=== PATIENT | male | born 1940 | race Caucasian/White ===

== ENCOUNTER 2022-01-22 00:39 | Observation (INO) | payer MEDICARE, SELFPAY ==
[2022-01-22] VITALS (9 sets, daily range): BP systolic 123–145; BP diastolic 62–76; PULSE 40–70; RESP 15–18; TEMP 36.4–36.7; O2SAT 93–97; BMI 30.4
[2022-01-22 06:35] LABS: Basophils % 0.7 % (0.1-2.0); Eosinophils # 0.2 K/mm3 (0.0-0.4); Hematocrit 31.1 % (42.0-52.0); Hemoglobin 10.2 g/dL (14.1-18.0); Lymphocytes # 0.8 K/mm3 (0.7-4.5); Mean Corpuscular HGB Conc 32.7 g/dL (31.8-35.4); Mean Corpuscular Hemoglobin 32.3 pg (27.0-31.2); Mean Corpuscular Volume 98.5 fl (80-94); Mean Platelet Volume 9.3 fl (7.4-10.4); Monocytes # 0.3 K/mm3 (0.1-1.0); Monocytes % 8.8 % (1.7-9.3); Neutrophils # 1.9 K/mm3 (1.8-7.8); Neutrophils % 59.4 % (37.0-80.0); Platelet Count 114 K/mm3 (142-424); Red Blood Count 3.16 M/mm3 (4.60-6.20); Red Cell Distribution Width 15.4 % (11.5-17.5); White Blood Count 3.2 K/mm3 (4.8-10.8)
--- NOTE | 2022-01-22 06:41 | PC.NURSE ---
Pt has rested well since admission. No c/o pain, or soa. Pt on 3L NC. AFIB on telemetry, bradycardic as low as 38bpm at times while asleep. Good urine output via f/c. VSS. No acute changes or distress noted, will continue to monitor.
[2022-01-22 06:43] LABS: Anion Gap 7.6 mEq/L (5-15); Blood Urea Nitrogen 13 mg/dl (9-20); Calcium 8.2 mg/dl (8.4-10.2); Carbon Dioxide 25 mmol/L (22.0-30.0); Chloride 107 mmol/L (98-107); Creatinine Clearance Estimated 76 mL/min (50-200); Estimated Glomerular Filt Rate 108 ml/min (>60); GFR (African American) 130 ML/MIN (>60); Glucose 90 mg/dl (74-100); Magnesium 1.8 mg/dl (1.6-2.3); Potassium 3.6 mmoL/L (3.5-5.1); Sodium 136 mmol/L (136-145)
[2022-01-22 07:05] LABS: POC Glucose,Bedside 88 (70-110)
[2022-01-22 07:05] LABS: NT Pro Brain Natriuretic Pep. 7080 pg/mL (0-450)
[2022-01-22 07:08] LABS: Troponin I < 0.01 ng/ml (0.00-0.034)
--- NOTE | 2022-01-22 07:30 | CA_ITS ---
APPROVED REPORT EXAM: Comprehensive 2D, Doppler, and color-flow Echocardiogram Machine Wood Sander: Amna Galeas RVT Ht: 5 ft 10 in Wt: 211lbs BSA: 2.14 BP: 123/67 mmHg Indications: NSTEMI,A-FIB,BRADYCARDIA 2D Dimensions LVOT 2.09 cm (M/F) 1.5-2.5 LA Volume 139.60 mL LA Volume Index 65.53 mL/m2 (M/F) 16-34 M-Mode Dimensions RVDd 3.94 cm (0.9-2.6) LA Diam 6.43 cm (1.9-4.0) LVDd 5.08 cm (3.5-5.7) Ao Diam 3.68 cm (2.0-3.7) LVDs 4.25 cm (3.5-5.7) IVSd 1.72 cm (0.6-1.1) PWd 0.90 cm (0.6-1.1) EF (Teich) 34.10% EPSs 2.08 cm FS 16.30% EDV (Teich) 122.70 mL TAPSE 1.06 (<1.7) ESV (Teich) 80.80 mL LV Diastology E Decel Time 100.00 (160-240 msec) E/A Ratio 3.1 MED E' 10.70 (< 7 cm/sec) E'/MED E' Ratio 11.41 (>14) LAT E' 12.00 (<10 cm/sec) E/LAT E' Ratio 10.17 (>14) Aortic Valve LVOT Max 90.00 (70-110 cm/s) LVOT VTI 21.16 cm AoV Peak Jean Marie. 220.00 (50-130 cm/s) AI PHT 1843.00 ms AO Peak GR. 19.50 mmHg AO Mean GR. 10.60 (<5 mmHg) AO VTI 51.57 (18-25 cm) MUKUL (VTI) 1.41 (2.5-4.5 cm2) Mitral Valve MV E Max Jean Marie. 122.00 (40-130 cm/s) MV A Velocity 39.00 (40-130 cm/s) E/A Ratio 3.15 MV Decel. Time 100.00 (160-240 ms) MV PHT 29.00 ms Pulmonary Valve PV Peak Velocity 69.00 (50-150 cm/s) Tricuspid Valve TR P. Velocity 344.00 cm/s RAP Estimate 10.00 mmHg RVSP 57.30 mmHg Left Ventricle Left atrium is moderately enlarged, left ventricle is normal size, there is moderate concentric left ventricular hypertrophy, estimated ejection fraction 50% with no regional wall motion abnormality, diastolic parameters are inconclusive. Right Ventricle Right atrium and right ventricle are moderately enlarged, contractility of the right ventricle is normal. Aortic Valve Aortic valve is thickened and calcified with mean gradient across aortic valve is 11 mmHg, valve area is 1.5 cm, represents mild aortic stenosis, there is mild aortic insufficiency. Mitral Valve Mitral valve has mitral annular calcification, leaflets are minimally thickened, there is mild mitral regurgitation. Tricuspid Valve Tricuspid valve is minimally thickened, there is moderate tricuspid regurgitation, calculated right ventricular systolic pressure is 53 mmHg. Pulmonic Valve Pulmonic valve is poorly visualized. Great Vessels Aortic root is normal size. Inferior vena cava is poorly visualized. Pericardium Small pericardial effusion noted. Conclusion 1. Moderate biatrial enlargement, normal left ventricular size, moderate concentric left ventricular hypertrophy, estimated ejection fraction 50% with no regional wall motion abnormality, diastolic parameters are inconclusive. 2. Moderately enlarged right ventricle with normal contractility. 3. Thickened and calcified aortic valve with mild aortic stenosis, there is mild aortic insufficiency. 4. Mild mitral and moderate tricuspid regurgitation, calculated right ventricular systolic pressure is 53 mmHg. 5. Small pericardial effusion noted. 6. Inferior vena cava is poorly visualized. Electronically signed by : Shukri Dias MD 01/23/2022 05:58:31
--- NOTE | 2022-01-22 07:52 | P.CONPHA_ITS ---
[facility] Pharmacy VTE Monitoring - Patient Demographics Admission date: 01/22/22 Report Date: 01/22/22 Time: 07:52 Allergies/Adverse Reactions: Patient Allergies No Known Allergies Allergy (Verified 01/22/22 01:50) Height: 1.78 m Weight: 96.071 kg - VTE Risk Labs: VTE Related Lab Results Hgb 10.2 g/dL (14.1-18.0) L 01/22/22 05:30 Hct 31.1 % (42.0-52.0) L 01/22/22 05:30 Plt Count 114 K/mm3 (142-424) L 01/22/22 05:30 BUN 13 mg/dl (9-20) 01/22/22 05:30 Creatinine 0.70 mg/dl (0.66-1.25) 01/22/22 05:30 Estimated Creat Clear 76 mL/min (50-200) 01/22/22 05:30 VTE Score: 2 - Prophylaxis VTE Prophylaxis Ordered?: Yes Types of VTE Prophylaxis: TEDS Knee High Location of Applied Device: Bilateral Lower Extremeties, Refused
--- NOTE | 2022-01-22 07:52 | HMH.PHAINT ---
MEDICATION RECONCILIATION COMPLETED ON PATIENT USING EXTERNAL FILL HISTORY FROM PHARMACY. -DALLAS HUBBARD, LAURELD
--- NOTE | 2022-01-22 08:00 | XR_ITS ---
FINAL REPORT CLINICAL HISTORY: sob FINDINGS: SINGLE-VIEW CHEST There is cardiomegaly. There is widening in the upper mediastinum which may be vascular. There is pulmonary vascular congestion. There is mild right base opacity, favor atelectasis. There is no pneumothorax. IMPRESSION: Right base opacity, favor atelectasis. Reviewed, Interpreted and Dictated by Jean Gloria III, MD Transcribed by Candy Perea Authenticated and [facility]
[2022-01-22 08:36] LABS: INR 1.71 (0.9-1.1); Prothrombin Time 18.6 seconds (10.1-12.5)
--- NOTE | 2022-01-22 08:38 | PC.NURSE ---
notified cardiology of consult
--- NOTE | 2022-01-22 08:59 | HMH.HP ---
*Admission Date: 01/22/22 *Chief complaint: Dysuria *History of present illness: 81-year-old male patient presented to the [facility] for reports of dysuria, urinary retention, and abdominal bloating for 2 days. While in [facility] emergency department troponin was collected and resulted elevated, EKG was negative for ischemic changes and [facility] cardiology consulted for NSTEMI. Patient denies any chest pain or shortness of breath and denies any chest pain while at [facility] History Medical History: Reports:: Atrial Fibrillation, Congestive Heart Failure, Diabetes Mellitus Type 2, Hyperlipidemia, Hypertension Denies:: Internal Pacemaker *Have you ever received a pneumonia vaccine?: Yes *Have you received a flu vaccine this season?: Yes Other Surgeries: Yes: No Previous Surgery. No: Pacemaker - *Social History Smoking Status: Former smoker Alcohol Intake: never Alcohol Intake Frequency:: 0-2 drinks per day Substance Use Type: denies use Last Used Substance: unknown *Occupational Status:: retired *Travel in the last 8 weeks: None Family Hx:: Unable to obtain Review of Systems - Review of Systems Review of systems:: pertinent systems reviewed and negative unless documented below - Constitutional Denies body ache(s), Denies fatigue, Denies fever(s) - Eyes Denies change in vision, Denies double vision - ENT Reports abnormal hearing, Denies difficulty swallowing, Denies headache(s) - *Cardiovascular Reports leg swelling, Denies chest pain, Denies shortness of breath - *Respiratory Reports cough, Denies shortness of breath - *Gastrointestinal Reports cramping, Denies abdominal pain - *Genitourinary Reports difficulty urinating, Reports painful urination - *Musculoskeletal Denies back pain, Denies body aches - Integumentary/Breasts Reports skin ulcer, Reports wounds, Denies yellowing of the skin - *Neurologic Denies seizure-like activity, Denies headache(s) - Psychiatric Denies hearing things others do not hear, Denies sensing things others do not sense - Endocrine Denies cold intolerance, Denies excessive sweating - Hematologic/Lymphatic Denies easy bleeding, Denies easy bruising - Allergic/Immunologic Denies GI upset with certain foods, Denies itchy eyes Meds Home Medications Medication Instructions Recorded Confirmed Type Atorvastatin Calcium [Lipitor 10mg 10 mg PO HS 01/22/22 01/22/22 History Tab] Cholecalciferol (Vitamin D3) 50 mcg PO DAILY 01/22/22 01/22/22 History [Vitamin D3] Felodipine [Felodipine ER] 10 mg PO DAILY 01/22/22 01/22/22 History Furosemide [Furosemide 40MG tAB*] 40 mg PO DAILY 01/22/22 01/22/22 History Meclizine HCl 12.5 mg PO HS 01/22/22 01/22/22 History Potassium Chloride [Micro-K 10mEq 10 meq PO BID 01/22/22 01/22/22 History cap] Sildenafil Citrate [Sildenafil] 20 mg PO TID 01/22/22 01/22/22 History Warfarin Sodium 5 mg PO DAILY 01/22/22 01/22/22 History Allergies Allergy/AdvReac Type Severity Reaction Status Date / Time No Known Allergies Allergy Verified 01/22/22 01:50 Exam Vital signs and Labs for Last 24 Hours: Temp Pulse Resp BP Pulse Ox 97.9 F 57 L 16 123/73 96 01/22/22 03:47 01/22/22 03:47 01/22/22 03:47 01/22/22 03:47 01/22/22 03:47 Laboratory Results - last 24 hr 01/22/22 05:30: NT-Pro-B Natriuret Pep 7080 H 01/22/22 05:30: Troponin I < 0.01 01/22/22 05:30: WBC 3.2 L, RBC 3.16 L, Hgb 10.2 L, Hct 31.1 L, MCV 98.5 H, MCH 32.3 H, MCHC 32.7, RDW 15.4, Plt Count 114 L, MPV 9.3, Neut % (Auto) 59.4, Lymph % (Auto) 25.0, [place] % (Auto) 8.8, Eos % (Auto) 6.0, Baso % (Auto) 0.7, Neut # (Auto) 1.9, Lymph # (Auto) 0.8, [place] # (Auto) 0.3, Eos # (Auto) 0.2, Baso # (Auto) 0.0 01/22/22 05:30: Sodium 136, Potassium 3.6, Chloride 107, Carbon Dioxide 25, Anion Gap 7.6, BUN 13, Creatinine 0.70, Estimated Creat Clear 76, Estimated GFR 108, Est GFR ( Amer) 130, Glucose 90, Calcium 8.2 L, Magnesium 1.8 01/22/22 06:54: PO
--- NOTE | 2022-01-22 09:45 | PC.NURSE ---
pt notified of wound eval
[2022-01-22 10:01] LABS: Coronavirus 19, PCR Not Detected (NotDetected); Influenza A, PCR Not Detected (NotDetected); Influenza B, PCR Not Detected (NotDetected)
--- NOTE | 2022-01-22 10:09 | HMH.PTWOUND ---
Rehab Inpt Wound Evaluation Rehab IP Wound Evaluation Start: 01/22/22 09:03 Freq: ONCE Status: Active Protocol: Document 01/22/22 10:06 FRITZ (Rec: 01/22/22 10:09 FRITZ [id number]) Rehab PT Wound Assessment Patient Status Premedicated Prior to Dressing Change No Subjective Subjective Pt reports decreased edema because he has been propping his feet up on a pillow - pt reports self care of BLE at home no open wounds - hyperkeratotic skin 2nd to chronic edema Wound Left Lower Leg Wound Secondary Dressing Type Gauze Roll/Wrap Comment kerlix only Right Lower Leg Wound Secondary Dressing Type Gauze Roll/Wrap Comment kerlix only Dressing Change Patient Tolerance Tolerated Well Plan/Recommendation Comment No wound care needs - pt has no open wounds and is able to self care for edema - thank you for involving wound care w / this patient. If pt does develop wound please contact wound care again Eval Complexity Eval Charge Codes 45439 - Low Complexity G-codes PT Current Status Other PT/OT Status PT Current Status Modifier CI-At least 1% but less than 20% impaired, limited or restricted PT Goal Status Other PT/OT Status PT Goal Status Modifer CI-At least 1% but less than 20% impaired, limited or restricted PHYSICIAN CERTIFICATION: I certify the specified therapy services for Armen Christensen are required, authorized, and reviewed every 30 days.
--- NOTE | 2022-01-22 10:41 | HMH.CNCARD ---
History of Present Illness Consult date: 01/22/22 Requesting physician: Declan Garcia Chief complaint: Urinary retention, dysuria, abdominal bloating, elevated trop Additional Medical History:: Past medical Hx: Chronic Afib Hx of bradycardia DM HLD HTN severe Pulmonary HTN Chronic hypokalemia BPH Chronic venous stasis History of present illness: 81 year old pleasant white male with above past medical hx presented to [facility] ed last night with complaint of urinary retention, dysuria, and abdominal bloating x 2 days. Patient denies any chest pain or wosening soa. Upon arrival to ED, troponin was collected and elevated. EKG was negative for ischemic changes. Patient was transferred to [facility] for evaluation for NSTEMI. Patient confused as to why he was sent here, my chest doesn't hurt. [facility] History Medical History: Reports:: Atrial Fibrillation, Congestive Heart Failure, Diabetes Mellitus Type 2, Hyperlipidemia, Hypertension Denies:: Internal Pacemaker *Have you ever received a pneumonia vaccine?: Yes *Have you received a flu vaccine this season?: Yes Other Surgeries: Yes: No Previous Surgery. No: Pacemaker - *Social History Smoking Status: Former smoker Alcohol Intake: never *Occupational Status:: retired *Travel in the last 8 weeks: None Family Hx:: Unable to obtain Meds Home Medications Medication Instructions Recorded Confirmed Type Atorvastatin Calcium [Lipitor 10mg 10 mg PO HS 01/22/22 01/22/22 History Tab] Cholecalciferol (Vitamin D3) 50 mcg PO DAILY 01/22/22 01/22/22 History [Vitamin D3] Felodipine [Felodipine ER] 10 mg PO DAILY 01/22/22 01/22/22 History Furosemide [Furosemide 40MG tAB*] 40 mg PO DAILY 01/22/22 01/22/22 History Meclizine HCl 12.5 mg PO HS 01/22/22 01/22/22 History Potassium Chloride [Micro-K 10mEq 10 meq PO BID 01/22/22 01/22/22 History cap] Sildenafil Citrate [Sildenafil] 20 mg PO TID 01/22/22 01/22/22 History Warfarin Sodium 5 mg PO DAILY 01/22/22 01/22/22 History Allergies Allergy/AdvReac Type Severity Reaction Status Date / Time No Known Allergies Allergy Verified 01/22/22 01:50 Exam Vital signs and Labs for Last 24 Hours: Temp Pulse Resp BP Pulse Ox 97.9 F 57 L 16 123/73 96 01/22/22 03:47 01/22/22 03:47 01/22/22 03:47 01/22/22 03:47 01/22/22 03:47 Laboratory Results - last 24 hr 01/22/22 05:30: NT-Pro-B Natriuret Pep 7080 H 01/22/22 05:30: Troponin I < 0.01 01/22/22 05:30: WBC 3.2 L, RBC 3.16 L, Hgb 10.2 L, Hct 31.1 L, MCV 98.5 H, MCH 32.3 H, MCHC 32.7, RDW 15.4, Plt Count 114 L, MPV 9.3, Neut % (Auto) 59.4, Lymph % (Auto) 25.0, [place] % (Auto) 8.8, Eos % (Auto) 6.0, Baso % (Auto) 0.7, Neut # (Auto) 1.9, Lymph # (Auto) 0.8, [place] # (Auto) 0.3, Eos # (Auto) 0.2, Baso # (Auto) 0.0 01/22/22 05:30: Sodium 136, Potassium 3.6, Chloride 107, Carbon Dioxide 25, Anion Gap 7.6, BUN 13, Creatinine 0.70, Estimated Creat Clear 76, Estimated GFR 108, Est GFR ( Amer) 130, Glucose 90, Calcium 8.2 L, Magnesium 1.8 01/22/22 06:54: POC Glucose 88 01/22/22 08:12: PT 18.6 H, INR 1.71 H 01/22/22 08:12: SARS-CoV-2 (PCR) Not detected, Influenza A Untype (PCR) Not detected, Influenza Type B (PCR) Not detected I & O for Last 24 hours: Intake & Output 01/19/22 01/20/22 01/21/22 01/22/22 23:59 23:59 23:59 23:59 Output Total 425 / 425 Balance -425 / -425 Weight 211 lb 12.8 oz - Constitutional no acute distress, morbidly obese Comments: mild jaundice noted - *Routine HEENT Exam Head: Present: normocephalic Eye: Present: EOMI, PERRL ENT: Present: mucous membranes moist - *Routine Neck Exam Present: supple. Absent: lymphadenopathy - *Routine Respiratory Exam Present: CTA bilaterally - *Routine Cardiovascular Exam Present: RRR Comments: chronic afib - *Routine Abdominal Exam Present: normoactive bowel sounds, distended, firm. Absent: tenderness Comments: anasarca noted to bilateral lower flanks and thighs
[2022-01-22 11:34] LABS: POC Glucose,Bedside 100 (70-110)
[2022-01-22 12:01] LABS: Microscopic, Urine URINE MICROSCOPIC (MICROSCOPIC)
[2022-01-22 12:02] LABS: Appearance,Urine CLEAR (Clear); Bilirubin,Urine Negative (Negative); Blood, Urine 3+ (Negative); Color,Urine YELLOW (Yellow); Glucose,Urine (UA) Negative (Negative); Ketones,Urine Negative (Negative); Leukocyte Esterase,Urine Negative (Negative); Nitrate,Urine Negative (Negative); Protein,Urine Negative (Negative); Specific Gravity, Urine >= 1.030 (1.005-1.030); Urobilinogen,Urine 0.2 EU/dl (0.2)
[2022-01-22 12:38] LABS: WBC,Urine Occasional #/hpf (0-3)
[2022-01-22 13:57] LABS: Alanine Aminotransferase 24 U/L (12-78); Albumin Level 2.9 g/dl (3.5-5.0); Alkaline Phosphatase 139 U/L (38-126); Aspartate Amino Transferase 35 U/L (17-59); Bilirubin,Direct 0.3 mg/dl (0.0-0.4); Bilirubin,Indirect 0.7 mg/dL (0.0-0.9); Bilirubin,Unconjugated 0.7 mg/dL (0.0-1.1); Total Protein,Serum 5.8 g/dl (6.3-8.2)
[2022-01-22 17:17] LABS: POC Glucose,Bedside 98 (70-110)
--- NOTE | 2022-01-22 17:32 | PC.NURSE ---
pt is A&OX4. family has been to visit. davian is to bedside, 1100 drained this shift. junctional on telemetry with HR 40-60. nasal canula in place with 3L O2.
[2022-01-22 21:44] LABS: POC Glucose,Bedside 117 (70-110)
[2022-01-23] VITALS: PULSE 45
[2022-01-23 04:00] VITALS: BP 138/77; PULSE 45; PULSE 50; RESP 17; TEMP 36.7; O2SAT 96
[2022-01-23 04:27] VITALS: BMI 29.8
[2022-01-23 06:17] LABS: Basophils % 1.2 % (0.1-2.0); Eosinophils # 0.2 K/mm3 (0.0-0.4); Eosinophils % 5.9 % (0.1-12.0); Hematocrit 32.4 % (42.0-52.0); Hemoglobin 10.7 g/dL (14.1-18.0); Lymphocytes # 0.9 K/mm3 (0.7-4.5); Lymphocytes % 24.3 % (10-50); Mean Corpuscular Hemoglobin 32.7 pg (27.0-31.2); Mean Platelet Volume 9.6 fl (7.4-10.4); Monocytes # 0.3 K/mm3 (0.1-1.0); Monocytes % 8.1 % (1.7-9.3); Neutrophils # 2.2 K/mm3 (1.8-7.8); Neutrophils % 60.7 % (37.0-80.0); Platelet Count 117 K/mm3 (142-424); Red Blood Count 3.27 M/mm3 (4.60-6.20); Red Cell Distribution Width 15.3 % (11.5-17.5); White Blood Count 3.6 K/mm3 (4.8-10.8)
--- NOTE | 2022-01-23 06:17 | PC.NURSE ---
pt rested well through the night, f/c to bsd with CYU noted, telemetry reveals sinus willie with HR down to 36 at times with ranges 44-53; pt [place], a&o x4; no complaints of pain, no other issues or concerns noted at this time, b/p's stable, no other issues or concerns at this time.
[2022-01-23 06:29] LABS: Anion Gap 7.7 mEq/L (5-15); Blood Urea Nitrogen 14 mg/dl (9-20); Calcium 8.3 mg/dl (8.4-10.2); Carbon Dioxide 27 mmol/L (22.0-30.0); Chloride 104 mmol/L (98-107); Creatinine Clearance Estimated 75 mL/min (50-200); Estimated Glomerular Filt Rate 92 ml/min (>60); GFR (African American) 112 ML/MIN (>60); Glucose 89 mg/dl (74-100); Potassium 3.7 mmoL/L (3.5-5.1); Sodium 135 mmol/L (136-145)
[2022-01-23 06:53] LABS: POC Glucose,Bedside 98 (70-110)
[2022-01-23 08:00] VITALS: BP 142/70; PULSE 50; PULSE 52; RESP 18; TEMP 36.6; O2SAT 97
--- NOTE | 2022-01-23 08:36 | PC.NURSE ---
Notified cardiology during rounds that pt's hr occasionally dips into the 30's but mostly runs 40's - 60's.
--- NOTE | 2022-01-23 08:37 | CT_ITS ---
FINAL REPORT TECHNIQUE: After the administration of oral and intravenous contrast, axial images were obtained through the abdomen and pelvis by computed tomography. The study was performed with techniques to keep radiation dose as low as reasonably achievable, (ALARA). Individual dose reduction techniques using automated exposure control or adjustment of mA and/or kV according to the patient's size were employed. CLINICAL HISTORY: abd distention FINDINGS: Abdomen: There is mild bibasilar atelectasis and small effusion. The liver has an irregular contour consistent with cirrhosis. There is a moderate amount of ascites and moderate anasarca. There is borderline splenomegaly. Spleen measures 12.7 cm. Sludge or stones are seen in the gallbladder. There is moderate vascular calcification. The adrenals are normal. The pancreas is unremarkable. The kidneys enhance appropriately. The aorta is normal in caliber. There is no adenopathy. Pelvis: The appendix is unremarkable. A Uribe catheter is present. There is sigmoid diverticulosis without evidence of diverticulitis. There is a left inguinal hernia containing fat. Fluid collection is seen in a right inguinal hernia, may represent inguinal hernia containing fluid or part of a right hydrocele. There is a moderate amount of pelvic free fluid. IMPRESSION: Cirrhosis and borderline splenomegaly. Sludge or stones in the gallbladder. Moderate amount of abdominal and pelvic ascites. Inguinal hernias as detailed above. Reviewed, Interpreted and Dictated by Jean Gloria III, MD Transcribed by Candy Perea Authenticated and . [facility]
--- NOTE | 2022-01-23 09:04 | HMH.ACPN2 ---
Internal Medicine - PN: Subj *Date: 01/23/22 *Time: 09:10 Interval history: 81-year-old male patient sitting up in bed resting quietly he denies any chest pain or shortness of breath during the night. Oxygenation 96% on 3 L per nasal cannula. Edema has decreased and urology has been consulted for urinary retention Exam Vital signs and Labs for Last 24 Hours: Temp Pulse Resp BP Pulse Ox 97.8 F 52 L 18 142/70 H 97 01/23/22 08:00 01/23/22 08:00 01/23/22 08:00 01/23/22 08:00 01/23/22 08:00 Laboratory Results - last 24 hr 01/22/22 05:30: Total Bilirubin 1.0, Direct Bilirubin 0.3, Conjugated Bilirubin 0.0, Indirect Bilirubin 0.7, Unconjugated Bilirubin 0.7, AST 35, ALT 24, Alkaline Phosphatase 139 H, Total Protein 5.8 L, Albumin 2.9 L 01/22/22 08:12: SARS-CoV-2 (PCR) Not detected, Influenza A Untype (PCR) Not detected, Influenza Type B (PCR) Not detected 01/22/22 11:25: POC Glucose 100 01/22/22 11:50: Urine Color Yellow, Urine Appearance Clear, Urine pH 5.0, Ur Specific [place] >= 1.030, Urine Protein Negative, Urine Glucose (UA) Negative, Urine Ketones Negative, Urine Blood 3+, Urine Nitrate Negative, Urine Bilirubin Negative, Urine Urobilinogen 0.2, Ur Leukocyte Esterase Negative, Urine RBC 10-20, Urine WBC Occasional, Ur Squamous Epith Cells None, Urine Bacteria None 01/22/22 16:44: POC Glucose 98 01/22/22 21:34: POC Glucose 117 H 01/23/22 05:28: WBC 3.6 L, RBC 3.27 L, Hgb 10.7 L, Hct 32.4 L, MCV 99.0 H, MCH 32.7 H, MCHC 33.0, RDW 15.3, Plt Count 117 L, MPV 9.6, Neut % (Auto) 60.7, Lymph % (Auto) 24.3, [place] % (Auto) 8.1, Eos % (Auto) 5.9, Baso % (Auto) 1.2, Neut # (Auto) 2.2, Lymph # (Auto) 0.9, [place] # (Auto) 0.3, Eos # (Auto) 0.2, Baso # (Auto) 0.0 01/23/22 05:28: Sodium 135 L, Potassium 3.7, Chloride 104, Carbon Dioxide 27, Anion Gap 7.7, BUN 14, Creatinine 0.80, Estimated Creat Clear 75, Estimated GFR 92, Est GFR ( Amer) 112, Glucose 89, Calcium 8.3 L 01/23/22 06:47: POC Glucose 98 I & O for Last 24 hours: Intake & Output 01/20/22 01/21/22 01/22/22 01/23/22 23:59 23:59 23:59 23:59 Intake Total 480 / 480 Output Total 2225 / 2225 Balance -1745 / -1745 Weight 211 lb 12.8 oz 208 lb 11.2 oz - Constitutional no acute distress - *Routine HEENT Exam Head: Present: normocephalic Eye: Present: EOMI ENT: Present: mucous membranes moist - *Routine Neck Exam Present: trachea midline. Absent: tracheal deviation - *Routine Respiratory Exam Present: CTA bilaterally. Absent: accessory muscle use - *Routine Cardiovascular Exam Present: irregularly irregular - *Routine Abdominal Exam Present: normoactive bowel sounds. Absent: tenderness, firm - *Routine Extremities Exam Present: edema, full ROM, pulses intact. Absent: cyanosis - *Routine Skin Exam Present: intact, wounds Comments: Venous stasis ulcers to bilateral lower extremities - *Routine Neurological Exam Present: alert, oriented X3 [id number] - Routine Psychiatric Exam Present: normal affect, normal thought process Assessment and Plan (1) Urinary retention Status: Acute Category: Medical Code(s): R33.9 - Retention of urine, unspecified (2) Chronic a-fib Status: Acute Category: Medical Code(s): I48.20 - Chronic atrial fibrillation, unspecified (3) Pulmonary HTN Status: Acute Category: Medical Code(s): I27.20 - Pulmonary hypertension, unspecified (4) Accelerated hypertension Status: Acute Category: Medical Code(s): I10 - Essential (primary) hypertension (5) Elevated troponin Status: Acute Category: Medical Code(s): R77.8 - Other specified abnormalities of plasma proteins - Assessment and plan all Dx Assessment and Plan for all problems:: Rounded with Dr. Neus, all orders per Dr. Cannon: 1. Cardiology following 2. Urology consult
--- NOTE | 2022-01-23 09:04 | HMH.PNCARD ---
Subjective Date: 01/23/22 Time: 09:04 Principal diagnosis: Urinary retention, abdominal pain, elevated trop Interval history: Patient reports feeling good. Denies chest pain or soa. Color better today. Abdominal distention improving. UOP good, > 2Liters. liver enzymes normal. abdominal CT pending. Urology consult pending. anasarca of flanks and thighs improving. Exam Vital signs and Labs for Last 24 Hours: Temp Pulse Resp BP Pulse Ox 97.8 F 52 L 18 142/70 H 97 01/23/22 08:00 01/23/22 08:00 01/23/22 08:00 01/23/22 08:00 01/23/22 08:00 Laboratory Results - last 24 hr 01/22/22 05:30: Total Bilirubin 1.0, Direct Bilirubin 0.3, Conjugated Bilirubin 0.0, Indirect Bilirubin 0.7, Unconjugated Bilirubin 0.7, AST 35, ALT 24, Alkaline Phosphatase 139 H, Total Protein 5.8 L, Albumin 2.9 L 01/22/22 08:12: SARS-CoV-2 (PCR) Not detected, Influenza A Untype (PCR) Not detected, Influenza Type B (PCR) Not detected 01/22/22 11:25: POC Glucose 100 01/22/22 11:50: Urine Color Yellow, Urine Appearance Clear, Urine pH 5.0, Ur Specific [place] >= 1.030, Urine Protein Negative, Urine Glucose (UA) Negative, Urine Ketones Negative, Urine Blood 3+, Urine Nitrate Negative, Urine Bilirubin Negative, Urine Urobilinogen 0.2, Ur Leukocyte Esterase Negative, Urine RBC 10-20, Urine WBC Occasional, Ur Squamous Epith Cells None, Urine Bacteria None 01/22/22 16:44: POC Glucose 98 01/22/22 21:34: POC Glucose 117 H 01/23/22 05:28: WBC 3.6 L, RBC 3.27 L, Hgb 10.7 L, Hct 32.4 L, MCV 99.0 H, MCH 32.7 H, MCHC 33.0, RDW 15.3, Plt Count 117 L, MPV 9.6, Neut % (Auto) 60.7, Lymph % (Auto) 24.3, [place] % (Auto) 8.1, Eos % (Auto) 5.9, Baso % (Auto) 1.2, Neut # (Auto) 2.2, Lymph # (Auto) 0.9, [place] # (Auto) 0.3, Eos # (Auto) 0.2, Baso # (Auto) 0.0 01/23/22 05:28: Sodium 135 L, Potassium 3.7, Chloride 104, Carbon Dioxide 27, Anion Gap 7.7, BUN 14, Creatinine 0.80, Estimated Creat Clear 75, Estimated GFR 92, Est GFR ( Amer) 112, Glucose 89, Calcium 8.3 L 01/23/22 06:47: POC Glucose 98 I & O for Last 24 hours: Intake & Output 01/20/22 01/21/22 01/22/22 01/23/22 23:59 23:59 23:59 23:59 Intake Total 480 / 480 Output Total 2225 / 2225 Balance -1745 / -1745 Weight 211 lb 12.8 oz 208 lb 11.2 oz - *Routine Respiratory Exam Present: CTA bilaterally - *Routine Cardiovascular Exam Comments: chronic afib - *Routine Abdominal Exam Present: normoactive bowel sounds, distended Comments: distention of abd is resolving but still present. - *Routine Extremities Exam Absent: cyanosis, clubbing, edema Comments: swelling to thighs improving Progress Note: A&P (1) Urinary retention Status: Acute (2) Chronic a-fib Status: Acute (3) Pulmonary HTN Status: Acute (4) Accelerated hypertension Status: Acute (5) Elevated troponin Status: Acute Assessment and Plan for All Diagnoses:: Elevated trop -In the presence of acute illness, chronic afib and pulmonary HTN -Patient denies acs symptoms -EKG negative for ischemic changes -Trop today 0.01. -NOT NSTEMI. recommend outpatient stress testing as needed. Chronic Afib -Rate controlled. -Continue coumadin as prescribed Pulmonary HTN/CHF/Anasarca -Echo today EF 45-50, leaky valves, mild pericardial effusion, right systolic pressure 53 -Continue Lasix 80mg today. Add aldactone 25. stop potassium -R/o other contributing factors such as cirrhosis. HTN -Stop Felodipine as this may be contributing to lower extremity edema. Start Valsartan 180. -Lasix as above. -DC potassium as aldactone and arb will drive it up. Urinary retention and dysuria -UA negative -> 2 liters uop in [place]. -Consult urology. Jaundice, abdominal distention, Anasarca-All improving -Liver enzymes normal -CT abdomen and pelvis pending -Possible GI consult. CV stable. will sign off. Recommend lasix 80mg again today then go back down to Lasix 40mg QD along with aldactone. Cont
[2022-01-23 11:30] VITALS: BP 143/77; PULSE 48; RESP 19; TEMP 36.7; O2SAT 97
[2022-01-23 12:00] VITALS: PULSE 50
[2022-01-23 12:39] LABS: POC Glucose,Bedside 99 (70-110)
--- NOTE | 2022-01-23 13:16 | HMH.CONS ---
*Admission Date: 01/22/22 *Reason for consult:: Urinary retention *History of present illness: Patient is an 81-year-old white male referred for urinary retention. Patient presented to the [facility] yesterday with complaints of dysuria and inability to void. He had associated abdominal distention. Uribe catheter was placed but a residual is not available. Patient had some elevated troponins and was transferred to [facility] for cardiac evaluation. Patient is diuresed several liters of fluid while here. His abdominal distention and lower extremity swelling have improved significantly. CT scan performed today shows evidence of ascites, cirrhosis, anasarca and gallbladder sludge. There are also bilateral inguinal hernias. The kidneys appear normal and the prostate is not enlarged. Uribe catheter is present in the bladder. Patient denies any urinary difficulties prior to 2 days ago. He states that his abdomen had swollen up to very abnormal size prior to his admission to the [facility]. His daughter states he was slightly confused when he went into the [facility] ER. [facility] History Medical History: Reports:: Atrial Fibrillation, Congestive Heart Failure, Diabetes Mellitus Type 2, Hyperlipidemia, Hypertension Denies:: Internal Pacemaker *Have you ever received a pneumonia vaccine?: Yes *Have you received a flu vaccine this season?: Yes Other Surgeries: Yes: No Previous Surgery. No: Pacemaker - *Social History Smoking Status: Former smoker Alcohol Intake: never Alcohol Intake Frequency:: 0-2 drinks per day Substance Use Type: denies use Last Used Substance: unknown *Occupational Status:: retired *Travel in the last 8 weeks: None Family Hx:: Unable to obtain Review of Systems - Review of Systems Review of systems:: pertinent systems reviewed and negative unless documented below - *Neurologic Reports abnormal hearing, Denies seizure-like activity, Denies headache(s) Meds Home Medications Medication Instructions Recorded Confirmed Type Atorvastatin Calcium [Lipitor 10mg 10 mg PO HS 01/22/22 01/22/22 History Tab] Cholecalciferol (Vitamin D3) 50 mcg PO DAILY 01/22/22 01/22/22 History [Vitamin D3] Felodipine [Felodipine ER] 10 mg PO DAILY 01/22/22 01/22/22 History Furosemide [Furosemide 40MG tAB*] 40 mg PO DAILY 01/22/22 01/22/22 History Meclizine HCl 12.5 mg PO HS 01/22/22 01/22/22 History Potassium Chloride [Micro-K 10mEq 10 meq PO BID 01/22/22 01/22/22 History cap] Sildenafil Citrate [Sildenafil] 20 mg PO TID 01/22/22 01/22/22 History Warfarin Sodium 5 mg PO DAILY 01/22/22 01/22/22 History Allergies Allergy/AdvReac Type Severity Reaction Status Date / Time No Known Allergies Allergy Verified 01/22/22 01:50 Exam Vital signs and Labs for Last 24 Hours: Temp Pulse Resp BP Pulse Ox 98.1 F 50 L 19 143/77 H 97 01/23/22 11:30 01/23/22 12:00 01/23/22 11:30 01/23/22 11:30 01/23/22 11:30 Laboratory Results - last 24 hr 01/22/22 05:30: Total Bilirubin 1.0, Direct Bilirubin 0.3, Conjugated Bilirubin 0.0, Indirect Bilirubin 0.7, Unconjugated Bilirubin 0.7, AST 35, ALT 24, Alkaline Phosphatase 139 H, Total Protein 5.8 L, Albumin 2.9 L 01/22/22 16:44: POC Glucose 98 01/22/22 21:34: POC Glucose 117 H 01/23/22 05:28: WBC 3.6 L, RBC 3.27 L, Hgb 10.7 L, Hct 32.4 L, MCV 99.0 H, MCH 32.7 H, MCHC 33.0, RDW 15.3, Plt Count 117 L, MPV 9.6, Neut % (Auto) 60.7, Lymph % (Auto) 24.3, [place] % (Auto) 8.1, Eos % (Auto) 5.9, Baso % (Auto) 1.2, Neut # (Auto) 2.2, Lymph # (Auto) 0.9, [place] # (Auto) 0.3, Eos # (Auto) 0.2, Baso # (Auto) 0.0 01/23/22 05:28: Sodium 135 L, Potassium 3.7, Chloride 104, Carbon Dioxide 27, Anion Gap 7.7, BUN 14, Creatinine 0.80, Estimated Creat Clear 75, Estimated GFR 92, Est GFR ( Amer) 112, Glucose 89, Calcium 8.3 L 01/23/22 06:47: POC Glucose 98 01/23/22 12:27: POC Glucose 99 I & O for Last 24 hours: Intake & Output 01/20/22 01/21/22 01/22/22
[2022-01-23 16:00] VITALS: BP 149/68; PULSE 57; PULSE 60; RESP 18; TEMP 36.8; O2SAT 91
--- NOTE | 2022-01-23 16:59 | HMH.DCSUM ---
General - General Admission date:: 01/22/22 HPI HPI: 81-year-old male patient presented to the [facility] for reports of dysuria, urinary retention, and abdominal bloating for 2 days. While in [facility] emergency department troponin was collected and resulted elevated, EKG was negative for ischemic changes and [facility] cardiology consulted for NSTEMI. Patient denies any chest pain or shortness of breath and denies any chest pain while at [facility] Hospital Course Hospital Course: Patient was admitted in transfer from [facility]. He had an elevated high-sensitivity troponin there and was transferred to [facility] with cardiology services. Patient did not have much in the way of ischemic chest pain or EKG changes. He was seen in consultation with cardiology and, noted to be in atrial fibrillation. An echo was performed showing an EF of 45-50 with some degree of valvular insufficiency. Patient had complaints of urinary retention, a Uribe was placed. He was seen in consultation per Dr. Whittaker in urology who recommended Flomax and a voiding trial. Patient underwent CT of the abdomen pelvis due to abdominal distention. Findings included ascites, cirrhosis, borderline splenomegaly and bilateral inguinal hernias. Cardiology initiated medication changes, namely changing felodipine to valsartan and aggressively diuresing. Aldactone was added. Objective Vital signs: Temp Pulse Resp BP Pulse Ox 98.2 F 57 L 18 149/68 H 91 L 01/23/22 16:00 01/23/22 16:00 01/23/22 16:00 01/23/22 16:00 01/23/22 16:00 no acute distress, obese, cooperative - *Routine HEENT Exam Head: Present: normocephalic Eye: Present: EOMI, PERRL ENT: Present: mucous membranes moist - *Routine Neck Exam Present: supple - *Routine Respiratory Exam Present: CTA bilaterally - *Routine Cardiovascular Exam Present: irregular rhythm - *Routine Abdominal Exam Present: soft, distended. Absent: rebound - *Routine Extremities Exam Present: edema. Absent: cyanosis - *Routine Skin Exam Present: warm. Absent: rash Results Labs on day of discharge: Labs from last 24 hours 01/23/22 01/23/22 01/23/22 12:27 06:47 05:28 WBC RBC Hgb Hct MCV MCH MCHC RDW Plt Count MPV Neut % (Auto) Lymph % (Auto) [place] % (Auto) Eos % (Auto) Baso % (Auto) Neut # (Auto) Lymph # (Auto) [place] # (Auto) Eos # (Auto) Baso # (Auto) Sodium 135 L Potassium 3.7 Chloride 104 Carbon Dioxide 27 Anion Gap 7.7 BUN 14 Creatinine 0.80 Estimated Creat Clear 75 Estimated GFR 92 Est GFR ( Amer) 112 Glucose 89 POC Glucose 99 98 Calcium 8.3 L 01/23/22 01/22/22 01/22/22 05:28 21:34 16:44 WBC 3.6 L RBC 3.27 L Hgb 10.7 L Hct 32.4 L MCV 99.0 H MCH 32.7 H MCHC 33.0 RDW 15.3 Plt Count 117 L MPV 9.6 Neut % (Auto) 60.7 Lymph % (Auto) 24.3 [place] % (Auto) 8.1 Eos % (Auto) 5.9 Baso % (Auto) 1.2 Neut # (Auto) 2.2 Lymph # (Auto) 0.9 [place] # (Auto) 0.3 Eos # (Auto) 0.2 Baso # (Auto) 0.0 Sodium Potassium Chloride Carbon Dioxide Anion Gap BUN Creatinine Estimated Creat Clear Estimated GFR Est GFR ( Amer) Glucose POC Glucose 117 H 98 Calcium Preliminary micro results at discharge 01/22/22 11:50 Urine Culture - Preliminary Urine,Catheterized NO GROWTH AFTER 24 HOURS DS: Diagnosis - Discharge Diagnosis (1) Urinary retention Status: Acute (2) Chronic a-fib Status: Acute (3) Pulmonary HTN Status: Acute (4) Accelerated hypertension Status: Acute (5) Elevated troponin Status: Acute Discharge Plan - Patient Discharge Instructions ACTIVITY: Limited activity DIET: continue same diet, low salt diet Patient Instructions: DI for Heart Failure, DI for Urinary
[2022-01-23 17:53] LABS: POC Glucose,Bedside 130 (70-110)
--- NOTE | 2022-01-24 14:20 | CARE MANAGER ---
Attempted post-discharge phone interview woth patient and no one answered.
== END 2022-01-23 18:51 | disposition home or self-care (01) ==
PROVIDERS: Nurse Practitioner; Nurse Practitioner Family; Admitting Provider Emergency Medicine; PCP Family Medicine; Visit Provider Emergency Medicine
DX: I21.4 Non-ST elevation (NSTEMI) myocardial infarction (principal); I48.20 Chronic atrial fibrillation, unspecified; I11.0 Hypertensive heart disease with heart failure; I50.9 Heart failure, unspecified; Z87.891 Personal history of nicotine dependence; I27.20 Pulmonary hypertension, unspecified; Z79.899 Other long term (current) drug therapy; R33.9 Retention of urine, unspecified; Z79.01 Long term (current) use of anticoagulants; E87.6 Hypokalemia; Z20.822 Contact with and (suspected) exposure to COVID-19
CPT/HCPCS: G0378; G0379; 36415; 71045; 74177; 80048; 80076; 81001; 82962; 83735; 83880; 84484; 85025; 85610; 87086; 93306; C9803; Q9967; U0003; U0005

== ENCOUNTER 2022-05-17 11:38 | Inpatient (IN) | payer MEDICARE, SELFPAY ==
[2022-05-17] VITALS (26 sets, daily range): BP systolic 124–175; BP diastolic 59–82; PULSE 52–68; RESP 16–20; TEMP 36.4–36.8; O2SAT 95–99; BMI 33.0
--- NOTE | 2022-05-17 11:41 | PC.NURSE ---
Pt arrived to the floor at this time
--- NOTE | 2022-05-17 11:50 | ECG_ITS ---
APPROVED REPORT Exam: Resting ECG HR:60 bpm ECG Measurements Heart Rate 60 AXES QRSd 98 QRS 15 QT 443 T 91 QTc 444 Conclusion ATRIAL FIBRILLATION INDETERMINATE AXIS LOW QRS VOLTAGE IN PRECORDIAL LEADS [QRS DEFLECTION < 1.0 mV IN CHEST LEADS] INCOMPLETE RIGHT BUNDLE BRANCH BLOCK [90+ ms QRS DURATION, TERMINAL R IN V1/V2, 40+ ms S IN I/aVL/V4/V5/V6] ANTEROSEPTAL MYOCARDIAL INFARCTION , OF INDETERMINATE AGE [40+ ms Q WAVE IN V1-V4] ABNORMAL ECG UNCONFIRMED REPORT Electronically signed by : Matias French MD 05/18/2022 08:59:49
--- NOTE | 2022-05-17 12:01 | HMH.PHAINT1 ---
Pharmacy Intervention Comments: MEDICATION RECONCILIATION COMPLETED ON PATIENT USING EXTERNAL FILL HISTORY FROM PHARMACY. -DALLAS HUBBARD, LAURELD
[2022-05-17 12:21] LABS: Coronavirus 19, PCR Not Detected (NotDetected); Influenza A, PCR Not Detected (NotDetected); Influenza B, PCR Not Detected (NotDetected)
[2022-05-17 12:42] LABS: Chloride 103 mmol/L (98-107); Potassium 3.8 mmoL/L (3.5-5.1); Sodium 138 mmol/L (136-145)
[2022-05-17 12:43] LABS: Basophils % 0.4 % (0.1-2.0); Eosinophils # 0.1 K/mm3 (0.0-0.4); Eosinophils % 3.9 % (0.1-12.0); Hematocrit 23.4 % (42.0-52.0); Hemoglobin 7.4 g/dL (14.1-18.0); Lymphocytes # 0.8 K/mm3 (0.7-4.5); Lymphocytes % 21.1 % (10-50); Mean Corpuscular HGB Conc 31.7 g/dL (31.8-35.4); Mean Corpuscular Hemoglobin 32.6 pg (27.0-31.2); Mean Corpuscular Volume 102.6 fl (80-94); Mean Platelet Volume 9.4 fl (7.4-10.4); Monocytes # 0.2 K/mm3 (0.1-1.0); Monocytes % 5.6 % (1.7-9.3); Neutrophils # 2.5 K/mm3 (1.8-7.8); Neutrophils % 69.1 % (37.0-80.0); Platelet Count 122 K/mm3 (142-424); Red Blood Count 2.28 M/mm3 (4.60-6.20); Red Cell Distribution Width 17.7 % (11.5-17.5); White Blood Count 3.6 K/mm3 (4.8-10.8)
[2022-05-17 12:45] LABS: Alanine Aminotransferase 23 U/L (12-78); Albumin Level 3.1 g/dl (3.5-5.0); Alkaline Phosphatase 128 U/L (38-126); Anion Gap 12.8 mEq/L (5-15); Aspartate Amino Transferase 43 U/L (17-59); Bilirubin,Total 1.3 mg/dl (0.2-1.3); Blood Urea Nitrogen 22 mg/dl (9-20); Carbon Dioxide 26 mmol/L (22.0-30.0); Creatinine Clearance Estimated 80 mL/min (50-200); Estimated Glomerular Filt Rate 81 ml/min (>60); GFR (African American) 98 ML/MIN (>60); Globulin 3.1 g/dL (1.3-3.2); Total Protein,Serum 6.2 g/dl (6.3-8.2)
[2022-05-17 12:46] LABS: Calcium 8.6 mg/dl (8.4-10.2); Glucose 100 mg/dl (74-100)
--- NOTE | 2022-05-17 12:51 | EXP.HP ---
History of Present Illness *Admission Date: 05/17/22 *Reason for visit:: rectal bleeding, supratherapeutic INR, NSTEMI *History of present illness: Patient is an 81-year-old male with past medical history of hypertension, CHF, CAD (no stents), A. fib, chronic venous stasis, and cirrhosis who is excepted for transfer from [facility] for NSTEMI, rectal bleeding with supratherapeutic INR and profound anemia. Patient reports he got up this morning, he lives at [facility] in [place], he got his breakfast and after sitting down he felt very weak and he was unable to stand up. Patient was transported to [facility] where he was found to have a very low hemoglobin, INR of 4.9, significantly elevated troponins, and CT scan showed cirrhosis, portal hypertension, and a small amount of ascites. There facility does not have cardiology and therefore they reached out to Dr. Curiel who consulted with me and decided to accept the patient for transfer here where he to need cardiac intervention. By the time patient arrives here he says he feels fine, he has not tried to get up and walk but he denies chest pain, shortness of breath, fever, chills, nausea, vomiting, diarrhea. He does report significant bleeding when having a bowel movement for the last 4 weeks. He kept thinking it was about to stop but it continued. He reports this being dark blood, intermittently, not with every bowel movement, and he does have a history of hemorrhoids. Rectal bleeding is not painful and he typically does not feel dizzy or lightheaded. [facility] Medical History (Updated 05/17/22 @ 13:23 by Gene Whittington MD) Acute rheumatoid arthritis Atrial fibrillation Congestive heart failure Coronary atherosclerosis Diabetes Hyperlipidemia Hypertension Hypokalemia Pulmonary hypertension Venous stasis Family History (Updated 05/17/22 @ 12:03 by Yancy Jain RN) Other Family history of acute congestive heart failure Family history of cancer Social History (Updated 05/17/22 @ 12:04 by Yancy Jain RN) Smoking Status: Former smoker alcohol intake: former substance use type: denies use current occupational status: retired Travel in the last 8 weeks: None housing: care home Review of Systems Constitutional Constitutional: Denies anorexia, Denies body ache(s), Denies chills, Reports fatigue, Denies fever(s), Denies frequent falls, Denies headache(s) and Denies poor appetite Eyes Eyes: Denies change in vision ENT Ears, Nose, Mouth, and Throat: Reports abnormal hearing (Decreased hearing), Denies dizziness, Denies dysphagia, Denies facial pain and Denies headache(s) *Cardiovascular Cardiovascular: Denies chest pain, Denies chest pain at rest, Denies dyspnea, Reports dyspnea on exertion, Reports irregular heart rhythm (Chronically) and Reports leg edema (Chronically) *Respiratory Respiratory: Denies change in phlegm color, Denies chest congestion, Denies cough, Denies dyspnea, Reports dyspnea on exertion, Denies hemoptysis and Denies wheezing *Gastrointestinal Gastrointestinal: Denies abdominal pain, Denies coffee ground emesis, Denies constipation, Denies dysphagia, Reports hematochezia and Denies melena Comments: dark red blood in stool *Genitourinary Genitourinary: Reports urinary hesitancy (Chronically) *Musculoskeletal Musculoskeletal: Reports abnormal gait (Generalized weakness) and Reports muscle weakness (Generalized) *Neurologic Neurologic: Reports abnormal gait (Generalized weakness), Reports abnormal hearing (Decreased hearing), Denies confusion, Denies convulsions, Denies dizziness, Denies localized weakness, Denies frequent falls and Denies headache(s) Psychiatric Psychiatric: Denies anxiety, Denies confusion and Denies depression Endocrine Endocrine: Reports fatigue Hematologic/Lymphatic Hematologic/Lymphatic: Reports easy bleeding Allergic/Immunologic Allergic/Immunologic: Denies wheezing Meds
[2022-05-17 13:07] LABS: Lactic Acid 1.1 mmol/L (0.7-2.1)
[2022-05-17 13:08] LABS: INR 5.04 (0.9-1.1); Prothrombin Time 49.7 seconds (10.1-12.5)
[2022-05-17 13:17] LABS: NT Pro Brain Natriuretic Pep. 4710 pg/mL (0-450)
[2022-05-17 14:16] LABS: Troponin I < 0.01 ng/ml (0.00-0.034)
[2022-05-17 14:37] LABS: Hemoglobin A1C 5.4 % (4.0-6.0)
[2022-05-17 16:25] LABS: Microscopic, Urine URINE MICROSCOPIC (MICROSCOPIC)
[2022-05-17 16:28] LABS: Appearance,Urine CLEAR (Clear); Bilirubin,Urine Negative (Negative); Blood, Urine Negative (Negative); Color,Urine YELLOW (Yellow); Glucose,Urine (UA) Negative (Negative); Ketones,Urine Negative (Negative); Leukocyte Esterase,Urine Negative (Negative); Nitrate,Urine Negative (Negative); PH,Urine 5.5 (5.0-8.5); Protein,Urine Negative (Negative); Specific Gravity, Urine 1.015 (1.005-1.030); Urobilinogen,Urine 0.2 EU/dl (0.2)
[2022-05-17 16:30] LABS: Ammonia 23 umol/L (9-30)
[2022-05-17 16:44] LABS: Troponin I < 0.01 ng/ml (0.00-0.034)
[2022-05-17 16:53] LABS: Bacteria,Urine 1+ /lpf; WBC,Urine Occasional #/hpf (0-3)
--- NOTE | 2022-05-17 18:31 | PC.NURSE ---
pt had 1 BM on dayshift.
[2022-05-17 18:51] LABS: Troponin I 0.02 ng/ml (0.00-0.034)
--- NOTE | 2022-05-17 23:42 | PC.NURSE ---
Addendum entered by Sidra Steele RN 05/18/22 01:45: JEFF hathaway made aware Original Note: pt had moderate sized BM. Stool noted to be light brown mixed with bright red blood.
--- NOTE | 2022-05-17 23:43 | EXP.PN ---
Subjective *Date: 05/18/22 *Time: 10:00 Interval history: examined patient , he is hard of hearing and had him reset hearing aid that did help some. patient asked for bed pain ,. he had 100 cc estimated bright red blood in bed estrada with brown stool. patient denies pain. 2nd unit of blood in at this time awaiting labs . 02:14 heart rate decreased to the 30s . patient was sleeping O2 sat and bp acceptable . will obtain 12 lead ekg . Staff made aware that if worse would have to consider pacing, present heart rate back to low 50s Exam Data for Last 24 hours Vital signs and Labs for Last 24 Hours: Temp Pulse Resp BP Pulse Ox 97.8 F 53 L 20 141/66 H 98 05/17/22 23:38 05/17/22 23:38 05/17/22 23:38 05/17/22 23:38 05/17/22 23:38 Laboratory Results - last 24 hr 05/17/22 12:15: SARS-CoV-2 (PCR) Not detected, Influenza A Untype (PCR) Not detected, Influenza Type B (PCR) Not detected 05/17/22 12:26: WBC 3.6 L, RBC 2.28 L, Hgb 7.4 L, Hct 23.4 L, MCV 102.6 H, MCH 32.6 H, MCHC 31.7 L, RDW 17.7 H, Plt Count 122 L, MPV 9.4, Neut % (Auto) 69.1, Lymph % (Auto) 21.1, [place] % (Auto) 5.6, Eos % (Auto) 3.9, Baso % (Auto) 0.4, Neut # (Auto) 2.5, Lymph # (Auto) 0.8, [place] # (Auto) 0.2, Eos # (Auto) 0.1, Baso # (Auto) 0.0 05/17/22 12:26: PT 49.7 H, INR 5.04 H 05/17/22 12:26: Sodium 138, Potassium 3.8, Chloride 103, Carbon Dioxide 26, Anion Gap 12.8, BUN 22 H, Creatinine 0.90, Estimated Creat Clear 80, Estimated GFR 81, Est GFR ( Amer) 98, Glucose 100, Calcium 8.6, Total Bilirubin 1.3, AST 43, ALT 23, Alkaline Phosphatase 128 H, Total Protein 6.2 L, Albumin 3.1 L, Globulin 3.1, Albumin/Globulin Ratio 1.0 L 05/17/22 12:26: Lactate 1.1 05/17/22 12:26: Troponin I < 0.01 05/17/22 12:26: Blood Type O Positive, Antibody Screen Negative, Crossmatch (AHG) See Detail 05/17/22 12:26: NT-Pro-B Natriuret Pep 4710 H 05/17/22 12:26: Hemoglobin A1c 5.4 05/17/22 12:26: Blood Type Confirm O Positive 05/17/22 15:35: Troponin I < 0.01 05/17/22 15:35: Ammonia 23 05/17/22 15:50: Urine Color Yellow, Urine Appearance Clear, Urine pH 5.5, Ur Specific [place] 1.015, Urine Protein Negative, Urine Glucose (UA) Negative, Urine Ketones Negative, Urine Blood Negative, Urine Nitrate Negative, Urine Bilirubin Negative, Urine Urobilinogen 0.2, Ur Leukocyte Esterase Negative, Urine WBC Occasional, Urine Bacteria 1+ 05/17/22 18:15: Troponin I 0.02 I & O for Last 24 hours: Intake & Output 05/14/22 05/15/22 05/16/22 05/17/22 23:59 23:59 23:59 23:59 Intake Total 1330 / 1330 Output Total 300 / 300 Balance 1030 / 1030 Weight 101.406 kg Constitutional Constitutional: no acute distress Comments: 03:10 patient alert and aware of issue, we talked about pacer and need for this. I also explained external pacing if he became symptomatic with a Heart Rate in the 30 s , he is unsure he would want pacer, but he is not a DNR *Routine Cardiovascular Exam Cardiovascular: Present bradycardia and irregularly irregular *Routine Abdominal Exam Abdominal: Present soft and distended Comments: large rounded abdomen that is soft none tender *Routine Rectal Exam Patient deferred: visual exam Visual: Present britney blood; Absent tenderness Digital: Present hemorrhoid (positive external hemorrhoids ); Absent anal fissure *Routine Neurological Exam Neurological: Present oriented X3 and CN II-XII intact; Absent hearing grossly intact (hard of hearing has hearing aid ) Assessment and Plan *Assessment and plan (1) Third degree heart block: Status: Acute Category: Medical Code(s): I44.2 - Atrioventricular block, complete (2) Rectal bleeding: Status: Acute Category: Medical Code(s): K62.5 - Hemorrhage of anus and rectum (3) Chronic a-fib: Status: Acute Category: Medical Code(s): I48.20 - Chronic atrial fibrillation, unspecified (4) Profound anemia: Status: Acute Category: Medical
[2022-05-18] VITALS (8 sets, daily range): BP systolic 108–164; BP diastolic 59–94; PULSE 47–87; RESP 16–22; TEMP 36.6–37.7; O2SAT 95–98; BMI 33.5
[2022-05-18 00:39] LABS: Hematocrit 27.6 % (42.0-52.0)
--- NOTE | 2022-05-18 02:10 | PC.NURSE ---
pts HR noted to decrease to 30s several times on telemetry, made hospitalist aware. EKG ordered for now
--- NOTE | 2022-05-18 02:12 | ECG_ITS ---
APPROVED REPORT Exam: Resting ECG HR:44 bpm ECG Measurements Heart Rate 44 AXES QRSd 107 QRS 23 QT 487 T 180 QTc 436 Conclusion ATRIAL FIBRILLATION WITH SLOW VENTRICULAR RESPONSE INDETERMINATE AXIS LOW QRS VOLTAGE [QRS DEFLECTION < 0.5/1.0 mV IN LIMB/CHEST LEADS] INCOMPLETE RIGHT BUNDLE BRANCH BLOCK [90+ ms QRS DURATION, TERMINAL R IN V1/V2, 40+ ms S IN I/aVL/V4/V5/V6] ANTEROSEPTAL MYOCARDIAL INFARCTION , OF INDETERMINATE AGE [40+ ms Q WAVE IN V1-V4] ABNORMAL ECG UNCONFIRMED REPORT Electronically signed by : Matias French MD 05/18/2022 08:59:39
--- NOTE | 2022-05-18 02:53 | PC.NURSE ---
Per MANAGER OF HEALTH, EKG reads 3rd degree heart block. Cardiology paged per MANAGER OF HEALTH. Defibrillator pads applied per MANAGER OF HEALTH in case Pt needs externally paced. Pt placed on continuous pulse ox as well. Per Dr. Curiel, pt will have pace maker placed at 10:00 this morning
--- NOTE | 2022-05-18 04:15 | PC.NURSE ---
PT HAD VERY SMALL/LOOSE/DARK RED BM AT THIS TIME.
[2022-05-18 06:58] LABS: Basophils % 0.5 % (0.1-2.0); Eosinophils # 0.2 K/mm3 (0.0-0.4); Eosinophils % 5.7 % (0.1-12.0); Hematocrit 27.5 % (42.0-52.0); Hemoglobin 8.9 g/dL (14.1-18.0); Lymphocytes # 0.8 K/mm3 (0.7-4.5); Lymphocytes % 21.9 % (10-50); Mean Corpuscular HGB Conc 32.3 g/dL (31.8-35.4); Mean Corpuscular Hemoglobin 31.8 pg (27.0-31.2); Mean Corpuscular Volume 98.6 fl (80-94); Mean Platelet Volume 10.2 fl (7.4-10.4); Monocytes # 0.3 K/mm3 (0.1-1.0); Monocytes % 8.7 % (1.7-9.3); Neutrophils # 2.4 K/mm3 (1.8-7.8); Neutrophils % 63.1 % (37.0-80.0); Platelet Count 112 K/mm3 (142-424); Red Blood Count 2.79 M/mm3 (4.60-6.20); Red Cell Distribution Width 19.2 % (11.5-17.5); White Blood Count 3.8 K/mm3 (4.8-10.8)
[2022-05-18 07:11] LABS: INR 4.43 (0.9-1.1); Lactic Acid 0.6 mmol/L (0.7-2.1)
[2022-05-18 07:12] LABS: Alanine Aminotransferase 19 U/L (12-78); Alkaline Phosphatase 129 U/L (38-126); Anion Gap 11.1 mEq/L (5-15); Aspartate Amino Transferase 37 U/L (17-59); Bilirubin,Total 1.5 mg/dl (0.2-1.3); Blood Urea Nitrogen 22 mg/dl (9-20); Calcium 8.4 mg/dl (8.4-10.2); Carbon Dioxide 26 mmol/L (22.0-30.0); Chloride 102 mmol/L (98-107); Creatinine Clearance Estimated 81 mL/min (50-200); Estimated Glomerular Filt Rate 71 ml/min (>60); GFR (African American) 86 ML/MIN (>60); Globulin 3.1 g/dL (1.3-3.2); Glucose 89 mg/dl (74-100); Magnesium 1.7 mg/dl (1.6-2.3); Potassium 4.1 mmoL/L (3.5-5.1); Sodium 135 mmol/L (136-145); Total Protein,Serum 6.1 g/dl (6.3-8.2)
--- NOTE | 2022-05-18 12:02 | XR_ITS ---
PROCEDURE INFORMATION: Exam: XR Chest Exam date and time: 05/18/2022 12:45 PM Age: 81 years old Clinical indication: Shortness of breath; Additional info: Shortness of breath, volume status TECHNIQUE: Imaging protocol: Radiologic exam of the chest. Views: 2 views. COMPARISON: CR XR CHEST PORTABLE 01/22/2022 9:45 AM FINDINGS: Lungs: Nonspecific bibasilar consolidation is present, consistent with atelectasis, edema, or pneumonia. Bilateral hyperinflation is present. Pleural spaces: There are no pleural effusions present. There is no evidence of pneumothorax. Heart/Mediastinum: Heart demonstrates mild diffuse enlargement. Vasculature: The vasculature demonstrates diffuse mild atherosclerotic calcification. Bones/joints: The thoracic spine demonstrates mild degenerative changes at multiple levels. IMPRESSION: 1. Nonspecific bibasilar consolidation is present, consistent with atelectasis, edema, or pneumonia. 2. Mild cardiomegaly. 3. Bilateral hyperinflation is present.
--- NOTE | 2022-05-18 12:02 | EXP.PN ---
Subjective *Date: 05/18/22 *Time: 12:02 Interval history: Patient was bradycardic overnight, he denies any symptoms during that time and he reports feeling well this morning. Patient discussed whether or not to have a pacemaker implanted last night with overnight provider. Patient wishes to speak to cardiology more about this so he can ask them some questions. Exam Data for Last 24 hours Vital signs and Labs for Last 24 Hours: Temp Pulse Resp BP Pulse Ox 98.1 F 87 18 139/67 97 05/18/22 08:00 05/18/22 08:00 05/18/22 08:00 05/18/22 08:00 05/18/22 08:00 Laboratory Results - last 24 hr 05/17/22 12:15: SARS-CoV-2 (PCR) Not detected, Influenza A Untype (PCR) Not detected, Influenza Type B (PCR) Not detected 05/17/22 12:26: WBC 3.6 L, RBC 2.28 L, Hgb 7.4 L, Hct 23.4 L, MCV 102.6 H, MCH 32.6 H, MCHC 31.7 L, RDW 17.7 H, Plt Count 122 L, MPV 9.4, Neut % (Auto) 69.1, Lymph % (Auto) 21.1, [place] % (Auto) 5.6, Eos % (Auto) 3.9, Baso % (Auto) 0.4, Neut # (Auto) 2.5, Lymph # (Auto) 0.8, [place] # (Auto) 0.2, Eos # (Auto) 0.1, Baso # (Auto) 0.0 05/17/22 12:26: PT 49.7 H, INR 5.04 H 05/17/22 12:26: Sodium 138, Potassium 3.8, Chloride 103, Carbon Dioxide 26, Anion Gap 12.8, BUN 22 H, Creatinine 0.90, Estimated Creat Clear 80, Estimated GFR 81, Est GFR ( Amer) 98, Glucose 100, Calcium 8.6, Total Bilirubin 1.3, AST 43, ALT 23, Alkaline Phosphatase 128 H, Total Protein 6.2 L, Albumin 3.1 L, Globulin 3.1, Albumin/Globulin Ratio 1.0 L 05/17/22 12:26: Lactate 1.1 05/17/22 12:26: Troponin I < 0.01 05/17/22 12:26: Blood Type O Positive, Antibody Screen Negative, Crossmatch (AHG) See Detail 05/17/22 12:26: NT-Pro-B Natriuret Pep 4710 H 05/17/22 12:26: Hemoglobin A1c 5.4 05/17/22 12:26: Blood Type Confirm O Positive 05/17/22 15:35: Troponin I < 0.01 05/17/22 15:35: Ammonia 23 05/17/22 15:50: Urine Color Yellow, Urine Appearance Clear, Urine pH 5.5, Ur Specific [place] 1.015, Urine Protein Negative, Urine Glucose (UA) Negative, Urine Ketones Negative, Urine Blood Negative, Urine Nitrate Negative, Urine Bilirubin Negative, Urine Urobilinogen 0.2, Ur Leukocyte Esterase Negative, Urine WBC Occasional, Urine Bacteria 1+ 05/17/22 18:15: Troponin I 0.02 05/18/22 00:30: Hgb 9.0 L D, Hct 27.6 L 05/18/22 06:47: WBC 3.8 L, RBC 2.79 L, Hgb 8.9 L, Hct 27.5 L, MCV 98.6 H, MCH 31.8 H, MCHC 32.3, RDW 19.2 H, Plt Count 112 L, MPV 10.2, Neut % (Auto) 63.1, Lymph % (Auto) 21.9, [place] % (Auto) 8.7, Eos % (Auto) 5.7, Baso % (Auto) 0.5, Neut # (Auto) 2.4, Lymph # (Auto) 0.8, [place] # (Auto) 0.3, Eos # (Auto) 0.2, Baso # (Auto) 0.0 05/18/22 06:47: PT 44.0 H, INR 4.43 H 05/18/22 06:47: Sodium 135 L, Potassium 4.1, Chloride 102, Carbon Dioxide 26, Anion Gap 11.1, BUN 22 H, Creatinine 1.00, Estimated Creat Clear 81, Estimated GFR 71, Est GFR ( Amer) 86, Glucose 89, Calcium 8.4, Magnesium 1.7, Total Bilirubin 1.5 H, AST 37, ALT 19, Alkaline Phosphatase 129 H, Total Protein 6.1 L, Albumin 3.0 L, Globulin 3.1, Albumin/Globulin Ratio 1.0 L 05/18/22 06:47: Lactate 0.6 L I & O for Last 24 hours: Intake & Output 05/15/22 05/16/22 05/17/22 05/18/22 23:59 23:59 23:59 23:59 Intake Total 1330 / 1330 480 / 480 Output Total 600 / 600 390 / 390 Balance 730 / 730 90 / 90 Weight 101.406 kg 102.512 kg Constitutional Constitutional: no acute distress, obese and chronically ill appearing *Routine HEENT Exam Head: Present normocephalic and atraumatic Eye: Present EOMI and PERRL ENT: Present mucous membranes moist *Routine Neck Exam Neck: Present supple and full ROM *Routine Respiratory Exam Respiratory: Present crackles (diffusely, more so in bases), diminished air movement and normal respiratory effort; Absent accessory muscle use, rhonchi or wheezes *Routine Cardiovascular Exam Cardiovascular: Present bradycardia and irregularly irregular *Routine Abdominal Exam Abdominal: Present soft and distended; Absent tenderness, rebound or guarding *Routine Rectal Exam Patient defer
--- NOTE | 2022-05-18 15:00 | PC.NURSE ---
PT IS SITTING UP IN THE CHAIR VISITING WITH FAMILY. PT IS ALERT AND ORIENTED X3 HOWEVER IS VERY HARD OF HEARING WHICH MAKES COMMUNICATING DIFFICULT.PT CONTINUES TO BE AFIB ON TELEMETRY WITH HR 50-60. SWELLING/REDNESS NOTED TO BLE. ABDOMEN FIRM/DISTENDED WITH HYPOACTIVE BOWEL SOUNDS. PT HAS BEEN HAVING SOME BRIGHT RED BLOODY BOWEL MOVEMENTS. LUNG SOUNDS DIMINISHED WITH FINE CRACKLES (BILATERAL BASES). AUDIBLE WHEEZING. WILL CONTINUE TO MONITOR.
--- NOTE | 2022-05-18 16:43 | PC.NURSE ---
Courtesy round done at this time, patient is watching TV . Fresh ice water given. Bed side commode checked. Trash and linens taken out.
--- NOTE | 2022-05-18 17:41 | PC.NURSE ---
pt had 3 BM today on dayshift.
--- NOTE | 2022-05-18 21:34 | PC.NURSE ---
spoke with [facility]. Verified dose for vit. K order.
[2022-05-19] VITALS (21 sets, daily range): BP systolic 98–160; BP diastolic 45–91; PULSE 40–72; RESP 16–24; TEMP 36.1–36.9; O2SAT 95–100; BMI 32.8
--- NOTE | 2022-05-19 | IR_ITS ---
APPROVED REPORT Patient Location: Inpatient [facility] Operator: LOIS Powers RT (R) PROCEDURES 1. Pocket formation for biventricular pacemaker generator with cardiac resynchronization/defibrillator therapy. 2. Placement of atrial sensing and pacing lead into the right atrial appendage. 3. Placement of a right ventricular sensing, pacinglead in the right ventricular apex. 4. Placement of left ventricular sensing pacing lead via the coronary sinus. 5. Permanent cardiac resynchronization therapy implantation/biventricular pacemaker. INDICATION Systolic Congestive Heart Failure, ejection <50%, Wide QRS >120ms, [place] Heart Assoication Class 3 Congestive Heart Failure Informed consent was obtained prior to the procedure. COMPLICATIONS None Estimated Blood Loss: Less than 10 mls TECHNIQUE 1% Lidocaine with epinephrine used to anesthetized the left anterior aspect of the chest. Scalpel was used to make the initial cutaneous incision while electrocautery was used to dissect down tinto the fascia. The fascia was lifted off the pectoralis muscle and digitally manipulated creating a pocket for the defibrillator. The patient was then placed in Trendelenburg position and the subclavian vein was accessed 3 times via the Selinger technique. A 6 Chinese sheath was placed under fluoroscopic guidance into the subclavian vein. The dilator was removed from the sheath. Using fluoroscopic guidance, the ventricular lead was placed into the right ventricular apex, screwed and secured into place. Electronic interrogation proved acceptable thresholds and voltage within the lead. Using 3-0 silk, the ventricular lead was then secured into place and sheath peeled away. Following this, a 9.5 Chinese sheath and dilator was then placed over one of the wires while keeping the other wire in place within the subclavian vein. The dilator was removed from the sheath. Using fluoroscopic guidance, contrast was used to visualize the coronary sinus, the left ventricular lead was placed into the coronary sinus. Electronic interrogation proved acceptable thresholds and voltage within the lead. Using 3-0 silk, the left ventricular lead was then secured into place and sheath peeled away.An additional 6 Chinese fresh sheath and dilator was placed over the existing wire. Using fluoroscopic guidance, the atrial lead was then placed into the right atrial appendage and screwed and secured in place. Electrical interrogation demonstrated acceptable thresholds and voltage number. The atrial lead was then secured into place using 3-0 silk and sheath peeled away. 1 gram of Ancef was used to flush the pocket. All 3 leads were connected to generator and tested via computer. The defibrillator then secured to the fascia. Monocryl was used to close the subcutaneous layers while paulo were used to close the cutaneous layer. A pressure dressing was placed and the patient was transferred to the postop holding area in stable condition for postoperative care. INTERROGATION Generator Model number: Eqvilibria X4 IS-1/IS4 U228 Generator Serial number: [id number] Atrial lead model number: Ingevity + IS-1 Bi Positive Fix RA/RV 52 cm 8741 Atrial lead serial number: [id number] P-wave: 0.2 mV Impedence: 474 Ohms Threshold: Afib Current: 0.0 mA Right Ventricular lead model number: Ingevity + IS-1 Bi Positive Fix RA/RV 59 cm 7842 Right Ventricular lead serial number: [id number] R-wave: 9.0 mV Impedence: 562 Ohms Threshold: 0.5V Current: 0.9 mA Left Ventricular lead model number: Ship Mate X4 Straight LVA Quad Electrode IS4 Passive 86 [id number] Left Ventricular lead serial number: [id number] R-wave: 8.0 mV Impedence: 1010 Ohms Threshold:
--- NOTE | 2022-05-19 04:13 | PC.NURSE ---
pt has not had a BM this shift. abdomen, is round, distended, soft, and non-tender. BS active. External hemorrhoids noted, and redness noted to buttocks. dressing applied. Audible wheezes noted at times. +2 pitting edema noted to thighs/hips. +2 non-pitting edema, redness, and dry/scaly skin noted to calves. Pt had temp of 99.9 and was given tylenol per mar. HR has been around 60, and has dropped in the 40's while sleeping. He was placed on 1.5L NC while sleeping d/t O2 sats dropping to around 87%.
[2022-05-19 06:46] LABS: INR 2.17 (0.9-1.1); Prothrombin Time 22.4 seconds (10.1-12.5)
[2022-05-19 06:49] LABS: Basophils % 0.6 % (0.1-2.0); Eosinophils # 0.1 K/mm3 (0.0-0.4); Eosinophils % 3.7 % (0.1-12.0); Hematocrit 25.9 % (42.0-52.0); Hemoglobin 8.4 g/dL (14.1-18.0); Lymphocytes # 0.7 K/mm3 (0.7-4.5); Lymphocytes % 17.5 % (10-50); Mean Corpuscular HGB Conc 32.4 g/dL (31.8-35.4); Mean Corpuscular Hemoglobin 32.1 pg (27.0-31.2); Mean Corpuscular Volume 98.9 fl (80-94); Monocytes # 0.3 K/mm3 (0.1-1.0); Monocytes % 6.9 % (1.7-9.3); Neutrophils # 2.8 K/mm3 (1.8-7.8); Neutrophils % 71.3 % (37.0-80.0); Platelet Count 115 K/mm3 (142-424); Red Blood Count 2.62 M/mm3 (4.60-6.20); Red Cell Distribution Width 19.1 % (11.5-17.5); White Blood Count 3.9 K/mm3 (4.8-10.8)
[2022-05-19 06:54] LABS: Alanine Aminotransferase 17 U/L (12-78); Albumin Level 2.8 g/dl (3.5-5.0); Albumin/Globulin Ratio 0.9 (1.1-1.8); Alkaline Phosphatase 118 U/L (38-126); Anion Gap 12.1 mEq/L (5-15); Aspartate Amino Transferase 36 U/L (17-59); Bilirubin,Total 1.7 mg/dl (0.2-1.3); Blood Urea Nitrogen 23 mg/dl (9-20); Calcium 8.2 mg/dl (8.4-10.2); Carbon Dioxide 23 mmol/L (22.0-30.0); Chloride 103 mmol/L (98-107); Creatinine Clearance Estimated 80 mL/min (50-200); Estimated Glomerular Filt Rate 81 ml/min (>60); GFR (African American) 98 ML/MIN (>60); Glucose 88 mg/dl (74-100); Magnesium 1.7 mg/dl (1.6-2.3); Potassium 4.1 mmoL/L (3.5-5.1); Sodium 134 mmol/L (136-145); Total Protein,Serum 5.8 g/dl (6.3-8.2)
--- NOTE | 2022-05-19 07:04 | PC.NURSE ---
REPORTED INR RESULTS TO DR HAN, ORDERS RECEIVED TO KEEP PT NPO.
--- NOTE | 2022-05-19 09:28 | EXP.CARD.CON ---
History of Present Illness History of Present Illness Consult date: 05/19/22 Requesting physician: Prem Fonseca Chief complaint: Weakness History of present illness: This is an 86-year-old white gentleman who presented to the emergency department at [facility] with rectal bleeding. The patient was found to be profoundly anemic with a supratherapeutic INR. His troponin was also elevated at [facility]. The patient was then transferred here to [facility]. The patient states that he lives at [facility] in [facility]. He states that when he got up from his breakfast he felt very weak and was unable to stand up. That is when he was transported to [facility] and found to be anemic and have an INR of 4.9. The patient had a CT of his abdomen which showed cirrhosis of the liver, portal hypertension and a small amount of abdominal ascites. The patient was transferred here to [facility]. His troponins have been negative. The patient did have some bradycardia with a high degree AV block since being admitted to the hospital here at [facility]. He was asymptomatic at that time. He denies any chest pain or pressure. He denies any shortness of breath. The patient has chronic bilateral lower extremity edema with venous stasis. He denies any fever, chills, nausea, vomiting, diarrhea, PND or orthopnea. The patient does report having dark blood in his stools. This does not occur with every bowel movement. He has a history of hemorrhoids. He denies any pain with his bowel movements. He also denies any lightheadedness or dizziness. He denies any episodes of syncope. The patient does have a known history of coronary artery disease, atrial fibrillation on warfarin and CHF. [facility] Medical History (Updated 05/19/22 @ 09:44 by Hina Paul APRN) Acute rheumatoid arthritis Atrial fibrillation Congestive heart failure Coronary atherosclerosis Diabetes High degree atrioventricular block Hyperlipidemia Hypertension Hypokalemia Pulmonary hypertension Venous stasis Family History (Updated 05/17/22 @ 12:03 by Yancy Jain RN) Other Family history of acute congestive heart failure Family history of cancer Social History (Updated 05/17/22 @ 12:04 by Yancy Jain RN) Smoking Status: Former smoker alcohol intake: former substance use type: denies use current occupational status: retired Travel in the last 8 weeks: None housing: skilled nursing Review of Systems Review of Systems Review of systems:: pertinent systems reviewed and negative unless documented below Constitutional Constitutional: Reports system reviewed and no additional complaints, except as documented, Reports fatigue, Reports lethargy and Reports weakness Eyes Eyes: Reports system reviewed and no additional complaints, except as documented ENT Ears, Nose, Mouth, and Throat: Reports system reviewed and no additional complaints, except as documented and Denies dizziness *Cardiovascular Cardiovascular: Reports system reviewed and no additional complaints, except as documented, Denies chest pain, Denies dyspnea and Reports leg edema *Respiratory Respiratory: Reports system reviewed and no additional complaints, except as documented and Denies dyspnea *Gastrointestinal Gastrointestinal: Reports system reviewed and no additional complaints, except as documented *Genitourinary Genitourinary: Reports system reviewed and no additional complaints, except as documented *Musculoskeletal Musculoskeletal: Reports system reviewed and no additional complaints, except as documented and Reports abnormal gait (Generalized weakness) Integumentary/Breasts Skin/Breast: Reports system reviewed and no additional complaints, except as documented *Neurologic Neurologic: Reports system reviewed and no additional complaints, except as documented, Reports abnormal gait (G
--- NOTE | 2022-05-19 10:27 | EXP.PN ---
Subjective *Date: 05/19/22 *Time: 10:27 Interval history: Patient reports feeling better today, his bright red blood with stools has improved a lot. He denies any chest pain, palpitations, or shortness of breath, although he has been rather sedentary during admission. Exam Data for Last 24 hours Vital signs and Labs for Last 24 Hours: Temp Pulse Resp BP Pulse Ox 98.0 F 40 L 16 136/63 97 05/19/22 07:50 05/19/22 08:00 05/19/22 07:50 05/19/22 07:50 05/19/22 07:50 Laboratory Results - last 24 hr 05/19/22 06:13: WBC 3.9 L, RBC 2.62 L, Hgb 8.4 L, Hct 25.9 L, MCV 98.9 H, MCH 32.1 H, MCHC 32.4, RDW 19.1 H, Plt Count 115 L, MPV 10.0, Neut % (Auto) 71.3, Lymph % (Auto) 17.5, [place] % (Auto) 6.9, Eos % (Auto) 3.7, Baso % (Auto) 0.6, Neut # (Auto) 2.8, Lymph # (Auto) 0.7, [place] # (Auto) 0.3, Eos # (Auto) 0.1, Baso # (Auto) 0.0 05/19/22 06:13: PT 22.4 H, INR 2.17 H 05/19/22 06:13: Sodium 134 L, Potassium 4.1, Chloride 103, Carbon Dioxide 23, Anion Gap 12.1, BUN 23 H, Creatinine 0.90, Estimated Creat Clear 80, Estimated GFR 81, Est GFR ( Amer) 98, Glucose 88, Calcium 8.2 L, Magnesium 1.7, Total Bilirubin 1.7 H, AST 36, ALT 17, Alkaline Phosphatase 118, Total Protein 5.8 L, Albumin 2.8 L, Globulin 3.0, Albumin/Globulin Ratio 0.9 L I & O for Last 24 hours: Intake & Output 05/16/22 05/17/22 05/18/22 05/19/22 23:59 23:59 23:59 23:59 Intake Total 1330 / 1330 1320 / 1320 Output Total 600 / 600 590 / 590 200 / 200 Balance 730 / 730 730 / 730 -200 / -200 Weight 101.406 kg 102.512 kg 100.754 kg Constitutional Constitutional: no acute distress, obese and chronically ill appearing *Routine HEENT Exam Head: Present normocephalic and atraumatic Eye: Present EOMI and PERRL ENT: Present mucous membranes moist *Routine Neck Exam Neck: Present supple and full ROM *Routine Respiratory Exam Respiratory: Present crackles (diffusely, more so in bases), diminished air movement and normal respiratory effort; Absent accessory muscle use, rhonchi or wheezes *Routine Cardiovascular Exam Cardiovascular: Present bradycardia and irregularly irregular *Routine Abdominal Exam Abdominal: Present soft and distended; Absent tenderness, rebound or guarding *Routine Rectal Exam Patient deferred: visual exam Visual: Present britney blood; Absent tenderness Digital: Present hemorrhoid (positive external hemorrhoids, no evidence of active bleeding today ); Absent anal fissure *Routine Extremities Exam Extremities: Present edema and full ROM; Absent tenderness Comments: changes of chronic venous stasis observed on bilateral lower legs *Routine Neurological Exam Neurological: Present alert, oriented X3, CN II-XII intact and moving all extremities; Absent normal tone (global hypotonia ) or hearing grossly intact (hard of hearing has hearing aid ) Routine Psychiatric Exam Psychiatric: Present normal affect, normal thought process and cooperative; Absent good insight, depressed or anxious Assessment and Plan *Assessment and plan (1) Chronic a-fib: Status: Acute Category: Medical Code(s): I48.20 - Chronic atrial fibrillation, unspecified (2) Elevated troponin: Status: Acute Category: Medical Code(s): R77.8 - Other specified abnormalities of plasma proteins (3) Congestive heart failure: Status: Acute Category: Medical Code(s): I50.9 - Heart failure, unspecified (4) Supratherapeutic INR: Status: Acute Category: Medical Code(s): R79.1 - Abnormal coagulation profile (5) Rectal bleeding: Status: Acute Category: Medical Code(s): K62.5 - Hemorrhage of anus and rectum (6) Profound anemia: Status: Acute Category: Medical Code(s): D64.9 - Anemia, unspecified (7) HTN (hypertension): Status: Acute Category: Medical Code(s): I10 - Essential (primary) hypertension (8) Cirrhosis: Status: Acute Category: Medica
--- NOTE | 2022-05-19 13:39 | EXP.SURG.CON ---
History of Present Illness *Admission Date: 05/17/22 *Reason for visit:: Hemorrhoids *History of present illness: Patient is an 81-year-old male with history of hypertension, CHF, coronary artery disease, chronic atrial fibrillation, chronic venous stasis, cirrhosis who is on anticoagulant therapy (warfarin) who was transferred on 05/17/2022 from [facility] for non-STEMI, rectal bleeding, and supratherapeutic INR with profound anemia. Patient resides at [facility] in [place]. He was evaluated at [facility] where he was found to have a diminished hemoglobin, INR 4.9, elevated troponins with CT scan showing cirrhosis, portal hypertension, and ascites. As [facility] does not have cardiology availability Dr. Curiel accepted the patient for transfer due to the potential need for cardiac intervention. Patient has had rectal bleeding for several weeks when having a bowel movement. He has a prior history of hemorrhoids according to him. Rectal bleeding is not painful. He arrived and was admitted 05/17/22 with a hemoglobin of 7.4. INR of 5.04. He was transfused. Patient is scheduled to undergo biventricular pacemaker placement today due to heart block. He has shown increasing bilirubin to 1.7. Surgical consultation was obtained due to bleeding hemorrhoids. [facility] Medical History (Updated 05/19/22 @ 09:44 by Hina Paul APRN) Acute rheumatoid arthritis Atrial fibrillation Congestive heart failure Coronary atherosclerosis Diabetes High degree atrioventricular block Hyperlipidemia Hypertension Hypokalemia Pulmonary hypertension Venous stasis Family History (Updated 05/17/22 @ 12:03 by Yancy Jain RN) Family history of acute congestive heart failure Family history of cancer Social History (Updated 05/17/22 @ 12:04 by Yancy Jain RN) Smoking Status: Former smoker alcohol intake: former substance use type: denies use current occupational status: retired Travel in the last 8 weeks: None housing: half-way Review of Systems Constitutional Constitutional: Denies frequent falls, Denies headache(s) and Reports weakness ENT Ears, Nose, Mouth, and Throat: Reports abnormal hearing (Decreased hearing), Denies dizziness and Denies headache(s) *Musculoskeletal Musculoskeletal: Reports abnormal gait (Generalized weakness) *Neurologic Neurologic: Reports system reviewed and no additional complaints, except as documented, Reports abnormal gait (Generalized weakness), Reports abnormal hearing (Decreased hearing), Denies confusion, Denies convulsions, Denies dizziness, Denies localized weakness, Denies frequent falls, Denies headache(s) and Reports weakness Psychiatric Psychiatric: Denies confusion Meds Home Medications and Allergies Home Medications Medication Instructions Recorded Confirmed Type atorvastatin 10 mg tablet 10 mg PO HS Cholesterol 01/22/22 05/17/22 History furosemide 40 mg tablet 40 mg PO DAILY Fluid 01/22/22 05/17/22 History meclizine 12.5 mg tablet 12.5 mg PO HS dizziness 01/22/22 05/17/22 History sildenafil (pulm.hypertension) 20 20 mg PO TID pulmonary htn 01/22/22 05/17/22 History mg tablet warfarin 5 mg tablet 5 mg PO DAILY AFIB 01/22/22 05/17/22 History cholecalciferol (vitamin D3) 50 50 mcg PO DAILY Supplement 05/17/22 05/17/22 History mcg (2,000 unit) capsule (Vitamin D3) irbesartan 150 mg tablet 150 mg PO DAILY Hypertension 05/17/22 05/17/22 History potassium chloride 10 mEq 10 meq PO BID Supplement 05/17/22 05/17/22 History capsule,extended release spironolactone 25 mg tablet 25 mg PO DAILY Fluid 05/17/22 05/17/22 History tamsulosin 0.4 mg capsule 0.4 mg PO HS PROSTATE 05/17/22 05/17/22 History New Prescriptions to Start Prescriptions: Allergies Allergy/AdvReac Type Severity Reaction Status Date / Time No Known Allergies Allergy Verified 02/10/22 13:49 Exam (Inpt) Vital signs an
--- NOTE | 2022-05-19 18:10 | XR_ITS ---
PROCEDURE INFORMATION: Exam: XR Chest Exam date and time: 05/19/2022 6:10 PM Age: 81 years old Clinical indication: Device placement; Cardiac pacemaker placement or adjustment; Additional info: Confirm pacemaker/aid placement TECHNIQUE: Imaging protocol: Radiologic exam of the chest. Views: 1 view. COMPARISON: CR XR CHEST 2V 05/18/2022 12:45 PM FINDINGS: Tubes, catheters and devices: Interval placement of a left-sided pacemaker. There is a lead projecting over the expected location of the right atrium. The longer lead tip is not identified on this study and is indeterminate in location. Lungs: Left perihilar opacities are nodular in appearance. Reticular opacities in the right lung may represent asymmetric pulmonary venous congestion/cardiogenic edema or infection. Pleural spaces: Unremarkable. No pleural effusion. No pneumothorax. Heart/Mediastinum: Cardiomegaly. Enlarged pulmonary arteries likely represent chronic pulmonary arterial hypertension. Bones/joints: Unremarkable. IMPRESSION: 1. Interval placement of a left-sided pacemaker. There is a lead projecting over the expected location of the right atrium. The longer lead tip is not identified on this study and is indeterminate in location. Please correlate with intended positioning. 2. Left perihilar opacities are nodular in appearance. Consider standing PA and lateral chest radiographs versus contrast-enhanced chest CT to exclude malignancy. 3. Reticular opacities in the right lung may represent asymmetric pulmonary venous congestion/cardiogenic edema or infection.
--- NOTE | 2022-05-19 19:35 | PC.NURSE ---
Patient arrived back to floor. Pacemaker dressing site clean dry and intact. No hematoma noted. Patient still groggy from anaesthesia. VS stable and patient on 2LNC while sleeping. No other changes noted or complaints
--- NOTE | 2022-05-19 22:02 | PC.NURSE ---
HEMATOMA NOTED TO PACEMAKER SITE UPON ASSESSMENT. SAND BAG IN PLACE.
[2022-05-19 23:43] LABS: Basophils % 0.5 % (0.1-2.0); Eosinophils % 0.5 % (0.1-12.0); Hematocrit 25.9 % (42.0-52.0); Hemoglobin 8.4 g/dL (14.1-18.0); Lymphocytes # 0.4 K/mm3 (0.7-4.5); Lymphocytes % 8.6 % (10-50); Mean Corpuscular HGB Conc 32.5 g/dL (31.8-35.4); Mean Corpuscular Hemoglobin 32.4 pg (27.0-31.2); Mean Corpuscular Volume 99.7 fl (80-94); Mean Platelet Volume 10.3 fl (7.4-10.4); Monocytes # 0.3 K/mm3 (0.1-1.0); Neutrophils # 4.4 K/mm3 (1.8-7.8); Neutrophils % 85.4 % (37.0-80.0); Platelet Count 112 K/mm3 (142-424); Red Cell Distribution Width 19.2 % (11.5-17.5); White Blood Count 5.1 K/mm3 (4.8-10.8)
[2022-05-19 23:47] LABS: MANUAL DIFFERENTIAL MANUAL DIFFERENTIAL (MANUAL DIFF)
[2022-05-20] VITALS (10 sets, daily range): BP systolic 115–133; BP diastolic 56–77; PULSE 70–80; RESP 17–18; TEMP 36.4–36.6; O2SAT 91–100; BMI 32.6
[2022-05-20 00:04] LABS: Lymphocytes % 8 % (10-50); Monocytes % 2 % (2-9); Neutrophils % 90 % (42-76); Total Cells Counted 100
[2022-05-20 00:05] LABS: Platelet Estimate Slight Decrease
[2022-05-20 00:07] LABS: Acanthocytes 1+
--- NOTE | 2022-05-20 05:39 | PC.NURSE ---
NO ACUTE CHANGES SINCE PREVIOUS ASSESSMENT. PT HAS NOT SLEPT MUCH THIS SHIFT. LUNG SOUNDS ARE WHEEZY. PT HAS C/O PAIN IN HIS LOWER BACK THIS SHIFT. HOSPITALIST ORDERED A K-PAD AND LIDOCAINE PATCH FOR PT. PT AL SO C/O RT KNEE PAIN THIS SHIFT AND WAS MEDICATED PER MAR WITH ADEQUATE RELIEF. PT'S BLE EDEMA IS NON-PITTING AND +1. PT'S HEMATOMA OVER PACEMAKER SITE IS LESS SWOLLEN THIS AM. NO C/O N/V/D OR CHEST PAIN. CALL GRANGER WITHIN REACH. BED ALARM IN PLACE FOR PT SAFETY.
[2022-05-20 06:35] LABS: Basophils % 0.2 % (0.1-2.0); Eosinophils % 0.5 % (0.1-12.0); Hematocrit 24.4 % (42.0-52.0); Hemoglobin 7.8 g/dL (14.1-18.0); Lymphocytes # 0.5 K/mm3 (0.7-4.5); Lymphocytes % 9.6 % (10-50); Mean Corpuscular HGB Conc 32.1 g/dL (31.8-35.4); Mean Corpuscular Hemoglobin 32.1 pg (27.0-31.2); Mean Corpuscular Volume 99.9 fl (80-94); Mean Platelet Volume 10.7 fl (7.4-10.4); Monocytes # 0.2 K/mm3 (0.1-1.0); Monocytes % 4.9 % (1.7-9.3); Neutrophils # 4.3 K/mm3 (1.8-7.8); Neutrophils % 84.7 % (37.0-80.0); Platelet Count 108 K/mm3 (142-424); Red Blood Count 2.44 M/mm3 (4.60-6.20)
[2022-05-20 06:45] LABS: Alanine Aminotransferase 18 U/L (12-78); Albumin Level 2.7 g/dl (3.5-5.0); Albumin/Globulin Ratio 0.9 (1.1-1.8); Alkaline Phosphatase 105 U/L (38-126); Anion Gap 14.1 mEq/L (5-15); Aspartate Amino Transferase 35 U/L (17-59); Blood Urea Nitrogen 22 mg/dl (9-20); Carbon Dioxide 22 mmol/L (22.0-30.0); Chloride 104 mmol/L (98-107); Creatinine Clearance Estimated 79 mL/min (50-200); Estimated Glomerular Filt Rate 81 ml/min (>60); GFR (African American) 98 ML/MIN (>60); Glucose 96 mg/dl (74-100); INR 1.56 (0.9-1.1); Potassium 4.1 mmoL/L (3.5-5.1); Prothrombin Time 16.4 seconds (10.1-12.5); Sodium 136 mmol/L (136-145); Total Protein,Serum 5.7 g/dl (6.3-8.2)
--- NOTE | 2022-05-20 07:59 | SW/DCPLANNER ---
Addendum entered by Leilani Brantley 05/23/22 09:21: Patient will discharge to [facility] [place] [facility] [place] of care today. Addendum entered by Leilani Brantley 05/22/22 08:17: *yesterday Addendum entered by Leilani Brantley 05/22/22 08:16: The plan for this patient is to discharge to [facility] level of care later today. COVID was collected yesteray. Addendum entered by Leilani Brantley 05/20/22 12:49: James has started precert on this patient for SNF level of care. Addendum entered by Leilani Brantley 05/20/22 10:17: Engaged in discussion with patient during morning rounds regarding discharge plans. Patient currently resides in Assisted Living but will more than likely require SNF level of care at time of discharge. I have updated James w/ [facility] and she has requested that patient information be faxed. Patient is agreeable to this discharge plan. Original Note: This patient currently resides at [facility]. I will continue to follow up with patient to assist with any needs/new orders at time of discharge. Discharge date is unknown at this time.
--- NOTE | 2022-05-20 08:27 | EXP.ANES.CKL ---
[facility] Medical History Acute rheumatoid arthritis Atrial fibrillation Congestive heart failure Coronary atherosclerosis Diabetes High degree atrioventricular block Hyperlipidemia Hypertension Hypokalemia Pulmonary hypertension Venous stasis Family History Other Family history of acute congestive heart failure Family history of cancer Social History Smoking Status: Former smoker alcohol intake: former substance use type: denies use current occupational status: retired Travel in the last 8 weeks: None housing: group home [facility] Anesthesia Checklist Patient Identification Patient Identification: Arm Band and Verbal (Name & ) Structural Data Admitted From: Inpatient Planned Operative Procedure/s: AICD Consent for Planned Operative Procedure(s) Verified: Yes NPO Status Verified Time NPO: 00:00 Airway Assessment C-Spine Mobility Assessed: Yes TMJ Mobility Assessed: Yes Dentition: Poor Dentition Neurological Assessment Level of Consciousness: Awake Hx Seizures: No Numbness or tingling in extremities: No Anesthesia Plan Anesthesia Risk discussed: Yes Anesthesia Plan: Verified ASA Class: III Anesthesia Type: MAC
--- NOTE | 2022-05-20 08:35 | US_ITS ---
FINAL REPORT CLINICAL HISTORY: pain, swelling, and weakness in right leg, HTN, DM, hyperlipidemia, bilateral claudication, bilateral rest pain. Discoloration distal bilateral lower extremities. FINDINGS: ANKLE-BRACHIAL PRESSURE INDICES Pressure indices are as follows: RIGHT LOWER EXTREMITY: Ankle-brachial pressure index: 1.0 Comments: Normal LEFT LOWER EXTREMITY: Ankle-brachial pressure index: Comments: Reliable RANDOLPH on the left cannot be obtained due to vessel incompressibility. CONCLUSION: Suboptimal exam due to limited vessel compressibility. Consider CTA to better evaluate. Reviewed, Interpreted and Dictated by Marco A Sales MD Transcribed by Tram Wahl Authenticated and [facility]
--- NOTE | 2022-05-20 10:00 | EXP.CARD.PN ---
Subjective Subjective Date: 05/20/22 Time: 09:30 Principal diagnosis: chf, high degree heart block Interval history: This is an 86-year-old gentleman who presented to the emergency department at [facility] with rectal bleeding. The patient was found to be profoundly anemic with a supratherapeutic INR. His troponin was elevated at [facility] as well and he was transferred here to [facility]. His troponin has been negative here at [facility]. No plans for invasive left cardiac catheterization at this time. The patient was found to have a high degree AV block with an ejection fraction of 40 to 45%. The patient was taken for biventricular AICD placement yesterday. He tolerated this procedure well. He does have some bruising and a small amount of hematoma at the insertion site. He states he has some soreness around the insertion site. He denies any chest pain or pressure. He denies any shortness of breath this morning. He has chronic bilateral lower extremity edema with venous stasis. He denies any fever, chills, nausea, vomiting, diarrhea, PND or orthopnea. Exam Data for Last 24 hours Vital signs and Labs for Last 24 Hours: Temp Pulse Resp BP Pulse Ox 97.9 F 70 17 133/70 98 05/20/22 07:26 05/20/22 07:26 05/20/22 07:26 05/20/22 07:26 05/20/22 07:26 Laboratory Results - last 24 hr 05/19/22 23:29: WBC 5.1 D, RBC 2.60 L, Hgb 8.4 L, Hct 25.9 L, MCV 99.7 H, MCH 32.4 H, MCHC 32.5, RDW 19.2 H, Plt Count 112 L, MPV 10.3, Neut % (Auto) 85.4 H, Lymph % (Auto) 8.6 L, Hand % (Auto) 5.0, Eos % (Auto) 0.5, Baso % (Auto) 0.5, Neut # (Auto) 4.4, Lymph # (Auto) 0.4 L, Hand # (Auto) 0.3, Eos # (Auto) 0.0, Baso # (Auto) 0.0, Total Counted 100, Neutrophils % (Manual) 90 H, Lymphocytes % (Manual) 8 L, Monocytes % (Manual) 2, Platelet Estimate Slight decrease, Acanthocytes (Spur) 1+ 05/20/22 06:22: WBC 5.0, RBC 2.44 L, Hgb 7.8 L, Hct 24.4 L, MCV 99.9 H, MCH 32.1 H, MCHC 32.1, RDW 19.0 H, Plt Count 108 L, MPV 10.7 H, Neut % (Auto) 84.7 H, Lymph % (Auto) 9.6 L, Hand % (Auto) 4.9, Eos % (Auto) 0.5, Baso % (Auto) 0.2, Neut # (Auto) 4.3, Lymph # (Auto) 0.5 L, Hand # (Auto) 0.2, Eos # (Auto) 0.0, Baso # (Auto) 0.0 05/20/22 06:22: PT 16.4 H, INR 1.56 H 05/20/22 06:22: Sodium 136, Potassium 4.1, Chloride 104, Carbon Dioxide 22, Anion Gap 14.1, BUN 22 H, Creatinine 0.90, Estimated Creat Clear 79, Estimated GFR 81, Est GFR ( Amer) 98, Glucose 96, Calcium 8.0 L, Total Bilirubin 2.0 H, AST 35, ALT 18, Alkaline Phosphatase 105, Total Protein 5.7 L, Albumin 2.7 L, Globulin 3.0, Albumin/Globulin Ratio 0.9 L I & O for Last 24 hours: Intake & Output 05/17/22 05/18/22 05/19/22 05/20/22 23:59 23:59 23:59 23:59 Intake Total 1330 / 1330 1320 / 1320 300 / 300 Output Total 600 / 600 590 / 590 1500 / 1500 200 / 200 Balance 730 / 730 730 / 730 -1500 / -1500 100 / 100 Weight 223 lb 9 oz 226 lb 222 lb 1.851 oz 220 lb 8 oz Narrative: EKG is ventricular pacing with a rate of 70 bpm. Constitutional Constitutional: no acute distress and obese *Routine HEENT Exam Head: Present normocephalic and atraumatic ENT: Present mucous membranes moist *Routine Neck Exam Neck: Present supple, full ROM and normal carotid upstroke; Absent JVD, carotid bruit or lymphadenopathy *Routine Respiratory Exam Respiratory: Present CTA bilaterally, normal respiratory effort, able to speak in complete sentences and symmetric chest movement *Routine Cardiovascular Exam Cardiovascular: Present Normal S1, Normal S2 and irregularly irregular; Absent murmur or gallop *Routine Abdominal Exam Abdominal: Present soft and normoactive bowel sounds; Absent tenderness, distended or organomegaly *Routine Extremities Exam Extremities: Present edema (Venous insufficiency to the bilateral lower extremities with venous stasis changes to the lower extremities), full ROM, pulses intact and normal capillary refill; Absent cyanosis or clubbing *Routine Skin Exam
--- NOTE | 2022-05-20 10:02 | HMH.PTEV ---
Physical Therapy Evaluation Rehab PT IP Evaluation Start: 05/20/22 08:22 Freq: ONCE Status: Active Protocol: Document 05/20/22 09:39 KOJOJOSE M (Rec: 05/20/22 09:59 KOJOJOSE M [id number]) Subjective/History History History Pt is an 81 y/o male transferred to [facility] from [facility] on 06/26 for NSTEMI and rectal bleeding with supratherapeutic INR and profound anemia. Pt had a pacemaker placed on . Medical History: Acute rheumatoid arthritis, Atrial fibrillation, Congestive heart failure, Coronary atherosclerosis, Diabetes, High degree atrioventricular block, Hyperlipidemia, Hypertension, Hypokalemia, Pulmonary hypertension, Venous stasis Subjective Subjective Pt reports he has been a resident at [facility] for 3-4 years. Pt reports he lives there alone and was independent with dressing, cooking, cleaning and all other ADLs prior to hospitalization. Pt reports he uses a walker for ambulation at baseline. Pt reports he was using oxygen at night time only. Patient is hard of hearing. Pt required cueing to avoid weightbearing through the left arm due to pacemaker. Rehab PT IP Eval Objective Appearance Patient Behavior Appropriate,Cooperative Patient Orientation Person,Place,Patient Baseline Difficulty following instructions none Speech Pattern Clear,Appropriate Balance Ability to Arise Able, uses arms to help Sitting Balance Leans or slides in chair Standing Balance Steady, wide stance Dynamic Sitting Balance Ability Fair Dynamic Standing Balance Ability Fair Transfers Bed Transfer Ability Moderate x 2 (50% assist) Chair Transfer Ability Minimal x 2 (25% assist) Sit to Stand Bed Transfer Ability Minimal x 2 (25% assist) Rehab PT IP prob,goals,plan Problems Date of Evaluation: 05/20/22 PT IP Problems Bed Mobi
--- NOTE | 2022-05-20 10:38 | HMH.OTEV ---
OT Inpatient Evaluation Rehab OT IP Evaluation Start: 05/20/22 08:22 Freq: ONCE Status: Complete Protocol: Document 05/20/22 09:57 ENEDINACHAD (Rec: 05/20/22 10:38 VLADIMIR [id number]) Rehab OT IP Assessment Subjective History Patient is an 81-year-old male with past medical history of hypertension, CHF, CAD (no stents), A. fib, chronic venous stasis, and cirrhosis who is excepted for transfer from [facility] for NSTEMI, rectal bleeding with supratherapeutic INR and profound anemia. Patient reports he got up this morning , he lives at [facility] in [place], he got his breakfast and after sitting down he felt very weak and he was unable to stand up. Patient was transported to [facility] where he was found to have a very low hemoglobin, INR of 4.9, significantly elevated troponins, and CT scan showed cirrhosis, portal hypertension, and a small amount of ascites. There facility does not have cardiology and therefore they reached out to Dr. Curiel who consulted with me and decided to accept the patient for transfer here where he to need cardiac intervention. By the time patient arrives here he says he feels fine, he has not tried to get up and walk but he denies chest pain, shortness of breath, fever, chills, nausea, vomiting, diarrhea. He does report significant bleeding when having a bowel movement for the last 4 weeks. He kept thinking it was about to stop but it continued. He reports this being dark blood, intermittently, not with every
--- NOTE | 2022-05-20 11:13 | EXP.ACUTE.PN ---
Subjective *Date: 05/20/22 *Time: 11:39 Interval history: Patient complains of pain today. States he hurts all over. Most sore at site of pacemaker. Labs reviewed this morning, hemoglobin down at 7.8 but stable compared to yesterday. Kidney function electrolytes acceptable. INR better at 1.6. Denies any nausea or vomiting. No anginal pain. No confusion or headache. Mainly his pain is in his right leg. Still having some mild bleeding with bowel movements. Medical Exam Vital signs and Labs for Last 24 Hours: Vital Signs Temp Pulse Pulse Resp BP BP Pulse Ox 05/20/22 11:09 97.6 F 70 18 128/63 100 05/20/22 07:26 97.9 F 70 17 133/70 98 05/20/22 04:00 70 05/20/22 04:00 97.7 F 70 18 129/62 91 L 05/20/22 00:55 70 18 115/77 97 05/20/22 00:00 70 05/19/22 23:55 97.8 F 71 18 136/72 95 05/19/22 22:55 72 18 115/68 97 05/19/22 21:55 72 18 139/72 97 05/19/22 20:55 72 18 143/85 H 97 05/19/22 20:25 71 20 142/70 H 96 05/19/22 19:55 98.4 F 72 18 143/85 H 97 05/19/22 19:25 98 F 71 18 142/70 H 98 05/19/22 20:00 70 05/19/22 18:55 71 16 120/65 95 05/19/22 18:40 70 17 122/73 98 05/19/22 19:10 97 05/19/22 18:22 70 20 108/57 L 99 05/19/22 18:08 70 16 98/45 L 05/19/22 18:04 97 F L 70 16 100/60 L 100 05/19/22 12:00 50 L 05/19/22 11:41 98.2 F 60 16 160/91 H 99 Intake and Output 05/19/22 05/20/22 05/20/22 23:59 07:59 15:59 Intake Total 300 / 300 Output Total 200 / 200 0 / 200 Balance 100 / 100 0 / 100 Intake: Intake, Oral Amount 300 / 300 Output: Output, Urine Amount 200 / 200 0 / 200 Other: Number of Unmeasured Voids 0 1 Weight 100.017 kg Patient Weight 05/20/22 23:59 Weight 100.017 kg Laboratory Results - last 24 hr 05/19/22 23:29: WBC 5.1 D, RBC 2.60 L, Hgb 8.4 L, Hct 25.9 L, MCV 99.7 H, MCH 32.4 H, MCHC 32.5, RDW 19.2 H, Plt Count 112 L, MPV 10.3, Neut % (Auto) 85.4 H, Lymph % (Auto) 8.6 L, [place] % (Auto) 5.0, Eos % (Auto) 0.5, Baso % (Auto) 0.5, Neut # (Auto) 4.4, Lymph # (Auto) 0.4 L, [place] # (Auto) 0.3, Eos # (Auto) 0.0, Baso # (Auto) 0.0, Total Counted 100, Neutrophils % (Manual) 90 H, Lymphocytes % (Manual) 8 L, Monocytes % (Manual) 2, Platelet Estimate Slight decrease, Acanthocytes (Spur) 1+ 05/20/22 06:22: WBC 5.0, RBC 2.44 L, Hgb 7.8 L, Hct 24.4 L, MCV 99.9 H, MCH 32.1 H, MCHC 32.1, RDW 19.0 H, Plt Count 108 L, MPV 10.7 H, Neut % (Auto) 84.7 H, Lymph % (Auto) 9.6 L, [place] % (Auto) 4.9, Eos % (Auto) 0.5, Baso % (Auto) 0.2, Neut # (Auto) 4.3, Lymph # (Auto) 0.5 L, [place] # (Auto) 0.2, Eos # (Auto) 0.0, Baso # (Auto) 0.0 05/20/22 06:22: PT 16.4 H, INR 1.56 H 05/20/22 06:22: Sodium 136, Potassium 4.1, Chloride 104, Carbon Dioxide 22, Anion Gap 14.1, BUN 22 H, Creatinine 0.90, Estimated Creat Clear 79, Estimated GFR 81, Est GFR ( Amer) 98, Glucose 96, Calcium 8.0 L, Total Bilirubin 2.0 H, AST 35, ALT 18, Alkaline Phosphatase 105, Total Protein 5.7 L, Albumin 2.7 L, Globulin 3.0, Albumin/Globulin Ratio 0.9 L I & O for Labs for Last 24 Hours: Intake & Output 05/17/22 05/18/22 05/19/22 05/20/22 23:59 23:59 23:59 23:59 Intake Total 1330 / 1330 1320 / 1320 300 / 300 Output Total 600 / 600 590 / 590 1500 / 1500 200 / 200 Balance 730 / 730 730 / 730 -1500 / -1500 100 / 100 Weight 101.406 kg 102.512 kg 100.75 kg 100.017 kg Constitutional: Present no acute distress, obese and chronically ill appearing Head: Present atraumatic and normocephalic ENT: Present normal exam and normal oropharynx Neck: Present normal inspection and trachea midline Respiratory: Present normal respiratory effort; Absent accessory muscle use, wheezes or crackles Cardiac: Present Reg Rate and Rhythm Comment:: chest wall tender to palpation over left upper chest; small hematoma present left upper chest. Leading edge stable GI: Present distention and normal lester
[2022-05-20 16:42] LABS: H. pylori Breath Test Negative (Negative)
[2022-05-21] VITALS (18 sets, daily range): BP systolic 122–147; BP diastolic 61–76; PULSE 65–72; RESP 16–23; TEMP 36.6–37.1; O2SAT 97–100; BMI 33.8
--- NOTE | 2022-05-21 05:15 | PC.NURSE ---
NO ACUTE CHANGES SINCE PREVIOUS ASSESSMENT. PT HAS RESTED WELL THIS SHIFT. LUNG SOUNDS REMAIN DIMINISHED. PT HAS HAD 2-3 BM'S THIS SHIFT THAT HAVE BEEN LOOSE BUT NO VISIBLE BLOOD. NO C/O PAIN THIS SHIFT. PACEMAKER SITE REMAINS SWOLLEN. VSS.
[2022-05-21 06:51] LABS: Basophils % 0.3 % (0.1-2.0); Eosinophils # 0.1 K/mm3 (0.0-0.4); Eosinophils % 2.3 % (0.1-12.0); Hematocrit 22.7 % (42.0-52.0); Hemoglobin 7.3 g/dL (14.1-18.0); Lymphocytes # 0.6 K/mm3 (0.7-4.5); Lymphocytes % 14.8 % (10-50); Mean Corpuscular Hemoglobin 32.6 pg (27.0-31.2); Monocytes # 0.3 K/mm3 (0.1-1.0); Monocytes % 7.9 % (1.7-9.3); Neutrophils # 2.8 K/mm3 (1.8-7.8); Neutrophils % 74.7 % (37.0-80.0); Platelet Count 98 K/mm3 (142-424); Red Blood Count 2.22 M/mm3 (4.60-6.20); Red Cell Distribution Width 19.7 % (11.5-17.5); White Blood Count 3.7 K/mm3 (4.8-10.8)
[2022-05-21 07:01] LABS: Alanine Aminotransferase 18 U/L (12-78); Albumin Level 2.7 g/dl (3.5-5.0); Albumin/Globulin Ratio 0.9 (1.1-1.8); Alkaline Phosphatase 100 U/L (38-126); Aspartate Amino Transferase 34 U/L (17-59); Bilirubin,Total 1.2 mg/dl (0.2-1.3); Blood Urea Nitrogen 23 mg/dl (9-20); Calcium 8.1 mg/dl (8.4-10.2); Carbon Dioxide 23 mmol/L (22.0-30.0); Chloride 104 mmol/L (98-107); Creatinine Clearance Estimated 82 mL/min (50-200); Estimated Glomerular Filt Rate 71 ml/min (>60); GFR (African American) 86 ML/MIN (>60); Globulin 2.9 g/dL (1.3-3.2); Glucose 119 mg/dl (74-100); Sodium 135 mmol/L (136-145); Total Protein,Serum 5.6 g/dl (6.3-8.2)
[2022-05-21 07:02] LABS: Anion Gap 12.1 mEq/L (5-15); Potassium 4.1 mmoL/L (3.5-5.1)
--- NOTE | 2022-05-21 08:53 | PC.NURSE ---
Sent covid swab down
[2022-05-21 09:00] LABS: Coronavirus 19, PCR Not Detected (NotDetected); Influenza A, PCR Not Detected (NotDetected); Influenza B, PCR Not Detected (NotDetected)
[2022-05-21 09:04] LABS: Chol/HDL Ratio 2.5 (1-3.5); Cholesterol 58 mg/dl (140-200); HDL Cholesterol 23 mg/dl (40-60); Triglycerides 42 mg/dl (30-150); VLDL Cholesterol 8 mg/dL (0-40)
[2022-05-21 09:25] LABS: Direct LDL Cholesterol < 30.00 mg/dL (100-129)
--- NOTE | 2022-05-21 10:58 | XR_ITS ---
FINAL REPORT CLINICAL HISTORY: right ankle pain, difficulty bearing weight FINDINGS: RIGHT ANKLE 3 views of the right ankle were obtained. There is no acute fracture or dislocation. The joint spaces are intact. There is soft tissue swelling about the ankle. There are vascular calcifications in the distal tibial vessels. IMPRESSION: Soft tissue swelling with no acute bony abnormality. Reviewed, Interpreted and Dictated by Marco A Sales MD Transcribed by Tram Wahl Authenticated and [facility]
--- NOTE | 2022-05-21 11:27 | EXP.CARD.PN ---
Subjective Subjective Date: 05/21/22 Time: 10:00 Principal diagnosis: chf, high degree heart block Interval history: This is an 86-year-old gentleman who presented to [facility] with rectal bleeding. The patient was found to be anemic and also had a supratherapeutic INR. The patient was transferred here to [facility]. His troponin was negative upon arriving here to [facility] but he was anemic and had a supratherapeutic INR. The patient had a high degree AV block with a heart rate in the 30s and 40s. His ejection fraction was down to 40 to 45% as well the patient needed to have a permanent pacemaker placement secondary to the high degree AV block with a heart rate in the 30s to 40s and due to his cardiomyopathy a biventricular pacemaker was placed. The patient tolerated the procedure well. He does have a small hematoma around the biventricular pacemaker site. It does not appear to be infected. There appears to be no significant bleeding from the site. He does have some bruising noted around the biventricular pacemaker site. He denies any chest pain or pressure. He denies any shortness of breath this morning. He has chronic bilateral lower extremity edema. He denies any fever, chills, nausea, vomiting, diarrhea, PND or orthopnea. His only complaint is a little bit of a sore throat this morning. Exam Data for Last 24 hours Vital signs and Labs for Last 24 Hours: Temp Pulse Resp BP Pulse Ox 97.9 F 70 16 122/71 97 05/21/22 08:00 05/21/22 08:00 05/21/22 08:00 05/21/22 08:00 05/21/22 08:00 Laboratory Results - last 24 hr 05/17/22 14:11: H. pylori Breath Test Negative 05/20/22 17:24: Hgb 8.0 L, Hct 25.0 L 05/21/22 06:36: WBC 3.7 L D, RBC 2.22 L, Hgb 7.3 L, Hct 22.7 L, MCV 102.0 H, MCH 32.6 H, MCHC 32.0, RDW 19.7 H, Plt Count 98 L, MPV 10.0, Neut % (Auto) 74.7, Lymph % (Auto) 14.8, [place] % (Auto) 7.9, Eos % (Auto) 2.3, Baso % (Auto) 0.3, Neut # (Auto) 2.8, Lymph # (Auto) 0.6 L, [place] # (Auto) 0.3, Eos # (Auto) 0.1, Baso # (Auto) 0.0 05/21/22 06:36: Sodium 135 L, Potassium 4.1, Chloride 104, Carbon Dioxide 23, Anion Gap 12.1, BUN 23 H, Creatinine 1.00, Estimated Creat Clear 82, Estimated GFR 71, Est GFR ( Amer) 86, Glucose 119 H, Calcium 8.1 L, Total Bilirubin 1.2, AST 34, ALT 18, Alkaline Phosphatase 100, Total Protein 5.6 L, Albumin 2.7 L, Globulin 2.9, Albumin/Globulin Ratio 0.9 L 05/21/22 06:36: Triglycerides 42, Cholesterol 58 L, LDL Cholesterol Direct < 30.00 L, VLDL Cholesterol 8, HDL Cholesterol 23 L, Cholesterol/HDL Ratio 2.5 05/21/22 08:46: SARS-CoV-2 (PCR) Not detected, Influenza A Untype (PCR) Not detected, Influenza Type B (PCR) Not detected 05/21/22 09:50: Crossmatch (AHG) See Detail I & O for Last 24 hours: Intake & Output 05/18/22 05/19/22 05/20/22 05/21/22 23:59 23:59 23:59 23:59 Intake Total 1320 / 1320 840 / 840 Output Total 590 / 590 1500 / 1500 200 / 200 575 / 575 Balance 730 / 730 -1500 / -1500 640 / 640 -575 / -575 Weight 226 lb 222 lb 1.851 oz 220 lb 8 oz 228 lb 9.6 oz Narrative: Telemetry strip is V pacing with underlying sinus rhythm and a rate of 70 bpm. Constitutional Constitutional: no acute distress and obese *Routine HEENT Exam Head: Present normocephalic and atraumatic ENT: Present mucous membranes moist *Routine Neck Exam Neck: Present supple, full ROM and normal carotid upstroke; Absent JVD, carotid bruit or lymphadenopathy *Routine Respiratory Exam Respiratory: Present CTA bilaterally, normal respiratory effort, able to speak in complete sentences and symmetric chest movement *Routine Cardiovascular Exam Cardiovascular: Present Normal S1, Normal S2 and irregularly irregular; Absent murmur or gallop *Routine Abdominal Exam Abdominal: Present soft and normoactive bowel sounds; Absent tenderness, distended or organomegaly *Routine Extremities Exam Extremities: Present edema (Venous insufficiency to the bilateral lower extremities with veno
--- NOTE | 2022-05-21 13:27 | EXP.ACUTE.PN ---
Subjective *Date: 05/21/22 *Time: 13:27 Interval history: Mr. Christensen continues to be hard of hearing this morning. Denies increased chest pain or shortness of breath. Pain in right lower leg somewhat better but now focal to right ankle. Still remains weak. States he just does not feel good. Reviewed labs from this morning showing persistent if not slightly worse anemia. Hemoglobin 7.3. We will plan for transfusion after discussion with cardiology he would like to keep hemoglobin around 9. Patient tolerating p.o. intake. Working with therapy. Remains afebrile and hemodynamically stable. No vomiting, diarrhea, cough, fever. Medical Exam Vital signs and Labs for Last 24 Hours: Vital Signs Temp Pulse Pulse Resp BP BP Pulse Ox 05/21/22 12:45 98.7 F 71 22 130/68 05/21/22 12:40 98.4 F 72 23 128/61 05/21/22 12:35 98.4 F 72 22 147/61 H 05/21/22 12:30 98.0 F 70 22 130/73 05/21/22 12:15 98.5 F 70 22 141/75 H 05/21/22 08:00 70 05/21/22 11:41 98.0 F 70 18 138/67 100 05/21/22 08:00 97.9 F 70 16 122/71 97 05/21/22 06:13 70 05/21/22 04:00 98.2 F 69 17 124/66 98 05/21/22 00:00 98.2 F 69 16 128/66 98 05/20/22 20:00 80 05/20/22 16:00 70 05/20/22 15:20 97.7 F 70 17 124/56 L 99 Intake and Output 05/20/22 05/21/22 05/21/22 23:59 07:59 15:59 Intake Total 240 / 840 0 / 0 Output Total 0 / 200 375 / 575 200 / 575 Balance 240 / 640 -375 / -575 -200 / -575 Intake: Intake, Oral Amount 240 / 840 Intake (Blood Product) Amt 0 / 0 Red Blood Cells Unit 0 / 0 [id number] Output: Output, Urine Amount 0 / 200 375 / 575 200 / 575 Other: Number of Unmeasured Voids 1 Number of Bowel Movements 1 Weight 103.691 kg Patient Weight 11/16/22 23:59 Weight 103.691 kg Laboratory Results - last 24 hr 05/17/22 14:11: H. pylori Breath Test Negative 05/20/22 17:24: Hgb 8.0 L, Hct 25.0 L 05/21/22 06:36: WBC 3.7 L D, RBC 2.22 L, Hgb 7.3 L, Hct 22.7 L, MCV 102.0 H, MCH 32.6 H, MCHC 32.0, RDW 19.7 H, Plt Count 98 L, MPV 10.0, Neut % (Auto) 74.7, Lymph % (Auto) 14.8, [place] % (Auto) 7.9, Eos % (Auto) 2.3, Baso % (Auto) 0.3, Neut # (Auto) 2.8, Lymph # (Auto) 0.6 L, [place] # (Auto) 0.3, Eos # (Auto) 0.1, Baso # (Auto) 0.0 05/21/22 06:36: Sodium 135 L, Potassium 4.1, Chloride 104, Carbon Dioxide 23, Anion Gap 12.1, BUN 23 H, Creatinine 1.00, Estimated Creat Clear 82, Estimated GFR 71, Est GFR ( Amer) 86, Glucose 119 H, Calcium 8.1 L, Total Bilirubin 1.2, AST 34, ALT 18, Alkaline Phosphatase 100, Total Protein 5.6 L, Albumin 2.7 L, Globulin 2.9, Albumin/Globulin Ratio 0.9 L 05/21/22 06:36: Triglycerides 42, Cholesterol 58 L, LDL Cholesterol Direct < 30.00 L, VLDL Cholesterol 8, HDL Cholesterol 23 L, Cholesterol/HDL Ratio 2.5 05/21/22 08:46: SARS-CoV-2 (PCR) Not detected, Influenza A Untype (PCR) Not detected, Influenza Type B (PCR) Not detected 05/21/22 09:50: Blood Type O Positive, Antibody Screen Negative, Crossmatch (AHG) See Detail I & O for Labs for Last 24 Hours: Intake & Output 05/18/22 05/19/22 05/20/22 05/21/22 23:59 23:59 23:59 23:59 Intake Total 1320 / 1320 840 / 840 0 / 0 Output Total 590 / 590 1500 / 1500 200 / 200 575 / 575 Balance 730 / 730 -1500 / -1500 640 / 640 -575 / -575 Weight 102.512 kg 100.75 kg 100.017 kg 103.691 kg Constitutional: Present no acute distress, obese and chronically ill appearing Head: Present atraumatic and normocephalic ENT: Present normal exam and normal oropharynx Neck: Present normal inspection and trachea midline Respiratory: Present normal respiratory effort; Absent accessory muscle use, wheezes or crackles Cardiac: Present Reg Rate and Rhythm Comment:: chest wall tender to palpation over left upper chest; small hematoma present left upper chest. Leading edge stable GI: Present distention and normal bowel sounds; Absent tenderness Rectal (male): Present def
--- NOTE | 2022-05-21 16:38 | EXP.DC.SUM ---
General Admission date:: 05/17/22 Discharge date: 05/22/22 HPI HPI HPI: Patient is an 81-year-old male with history of hypertension, CHF, coronary artery disease, chronic atrial fibrillation, chronic venous stasis, cirrhosis who is on anticoagulant therapy (warfarin) who was transferred on 05/17/2022 from [facility] for non-STEMI, rectal bleeding, and supratherapeutic INR with profound anemia. Patient resides at [facility] in [place]. [facility] where he was found to have a diminished hemoglobin, INR 4.9, elevated troponins with CT scan showing cirrhosis, portal hypertension, and ascites. As [facility] does not have cardiology availability Dr. Curiel accepted the patient for transfer due to the potential need for cardiac intervention. Patient has had rectal bleeding for several weeks when having a bowel movement. He has a prior history of hemorrhoids according to him. Rectal bleeding is not painful. He arrived and was admitted 05/17/22 with a hemoglobin of 7.4. INR of 5.04. He was transfused. Patient is scheduled to undergo biventricular pacemaker placement today due to heart block. He has shown increasing bilirubin to 1.7. Surgical consultation was obtained due to bleeding hemorrhoids. Hospital Course Hospital Course Hospital Course: Patient is an 81-year-old male with multiple chronic medical conditions including coronary artery disease (no stents placed), CHF, A. fib on warfarin, and chronic venous stasis who is admitted to this facility as a transfer from [facility] for NSTEMI, rectal bleeding causing profound anemia, and supratherapeutic INR.? Developed bradycardia necessitating placement of pacemaker. As a consequence of his rectal bleeding and hematoma around the pacemaker generator, patient required a total of 4 units during hospitalization. Bleeding stopped. No scopes were performed as hemorrhoids appeared to be his source along with his elevated INR. Blood thinners held. Patient stable for transfer to assisted for therapy. Needs further evaluations/follow-up in the outpatient setting with GI and cardiology.? Overall stable.? Problems addressed as follows: Rectal bleeding with supratherapeutic INR Blood loss anemia -Surgery was consulted for possible GI bleed. Patient received 2 units of blood on 05/17. And 1 more unit on both 05/21 and 05/22. Hemoglobin at time of discharge 9.5. Patient's transfusion threshold is hemoglobin less than 9 given coronary artery disease and comorbidities. Recommend holding blood thinners moving forward in the setting of cirrhosis and his bleeding hemorrhoids. Patient currently in a paced rhythm, would benefit from placement of a watchman device given contraindication of anticoagulation. Surgery is reached out to and is assisting in scheduling this intervention. No further significant bleeding 48 hours prior to discharge. -Would benefit from referral to GI for evaluation of his cirrhosis which is a new diagnosis per patient. afib Bradycardia NSTEMI Diastolic CHF -History of A. fib for which he was on anticoagulation. This however led to his bleeding. Anticoagulation was stopped, patient developed bradycardia during hospitalization. Cardiology was consulted and recommended pacemaker placement. Pacemaker placed on 05/20. Has moderate hematoma around generator that has been stable on exam after correction of INR. [facility] Cardiology assisting with as outpatient with cardiology at for consultation for watchman device. Echo obtained during hospitalization showing preserved EF, elevated right-sided pressures.? Continuing diuretics cirrhosis Portal hypertension Thrombocytopenia -Patient does not have a known history of previous diagnosis however has risk factors from his past. This complicates his bleeding risk and is a suspected source for his significant hemorrhoids. Meld score of
[2022-05-21 19:26] LABS: Hematocrit 24.4 % (42.0-52.0); Hemoglobin 7.7 g/dL (14.1-18.0)
[2022-05-22] VITALS (20 sets, daily range): BP systolic 118–159; BP diastolic 58–82; PULSE 53–82; RESP 16–22; TEMP 36.4–37.1; O2SAT 88–100; BMI 33.3
--- NOTE | 2022-05-22 05:52 | PC.NURSE ---
pt has rested well this shift, pacemaker site bruised and swollen, no complaints of pain this shift, no BMs this shift
[2022-05-22 07:28] LABS: Basophils % 0.5 % (0.1-2.0); Eosinophils # 0.1 K/mm3 (0.0-0.4); Eosinophils % 3.3 % (0.1-12.0); Hematocrit 24.1 % (42.0-52.0); Hemoglobin 7.7 g/dL (14.1-18.0); Lymphocytes # 0.6 K/mm3 (0.7-4.5); Lymphocytes % 15.4 % (10-50); Mean Corpuscular HGB Conc 31.9 g/dL (31.8-35.4); Mean Corpuscular Hemoglobin 32.2 pg (27.0-31.2); Mean Corpuscular Volume 100.9 fl (80-94); Mean Platelet Volume 9.7 fl (7.4-10.4); Monocytes # 0.3 K/mm3 (0.1-1.0); Neutrophils # 2.7 K/mm3 (1.8-7.8); Neutrophils % 73.7 % (37.0-80.0); Platelet Count 105 K/mm3 (142-424); Red Blood Count 2.39 M/mm3 (4.60-6.20); Red Cell Distribution Width 20.1 % (11.5-17.5); White Blood Count 3.7 K/mm3 (4.8-10.8)
[2022-05-22 07:31] LABS: INR 1.53 (0.9-1.1); Prothrombin Time 16.1 seconds (10.1-12.5)
[2022-05-22 07:35] LABS: Alanine Aminotransferase 15 U/L (12-78); Albumin Level 2.8 g/dl (3.5-5.0); Alkaline Phosphatase 103 U/L (38-126); Anion Gap 11.3 mEq/L (5-15); Aspartate Amino Transferase 36 U/L (17-59); Bilirubin,Total 1.5 mg/dl (0.2-1.3); Blood Urea Nitrogen 24 mg/dl (9-20); Calcium 8.1 mg/dl (8.4-10.2); Carbon Dioxide 24 mmol/L (22.0-30.0); Chloride 103 mmol/L (98-107); Creatinine Clearance Estimated 73 mL/min (50-200); Estimated Glomerular Filt Rate 64 ml/min (>60); GFR (African American) 77 ML/MIN (>60); Globulin 2.9 g/dL (1.3-3.2); Glucose 97 mg/dl (74-100); Potassium 4.3 mmoL/L (3.5-5.1); Sodium 134 mmol/L (136-145); Total Protein,Serum 5.7 g/dl (6.3-8.2)
--- NOTE | 2022-05-22 10:14 | CARE MANAGER ---
[facility] requested information on blood transfusions, information faxed.
[2022-05-22 13:04] LABS: Hematocrit 28.8 % (42.0-52.0)
[2022-05-22 13:11] LABS: Hemoglobin 9.5 g/dL (14.1-18.0)
--- NOTE | 2022-05-22 19:56 | PC.NURSE ---
Addendum entered by Frederick Saba RN 05/22/22 19:58: Prior to this, James stated pt could come if slightly later than 1500. Report was given to Leanna. [facility] per nasal cannula placed on pt this afternoon. Original Note: I called his afternoon and stated they wrere unable to take pt, since pt hadn't arrived yet and would have to come first thing viktoriya am. Notified Dr. Mcmahon of this and he is also aware that pt has no iv access and is ok with that at this time, unless pt were to need prior to d/c viktoriya am.
[2022-05-23] VITALS: BP 139/69; PULSE 70; RESP 16; TEMP 36.7; O2SAT 98
[2022-05-23 04:00] VITALS: BP 117/74; PULSE 70; RESP 20; TEMP 36.8; O2SAT 96
[2022-05-23 04:29] VITALS: BMI 32.9
--- NOTE | 2022-05-23 04:46 | PC.NURSE ---
Addendum entered by Tyesha Regan RN 05/23/22 04:48: was on 2L NC at beginning of shift, was turned to 1L and is now on room air Original Note: pt up to chair part of shift, has rested intermittently t/o shift, pacemaker site swollen and bruised, has complained of pain in legs and was treated per MAR
[2022-05-23 06:30] VITALS: O2SAT 91
[2022-05-23 07:34] LABS: Basophils % 0.7 % (0.1-2.0); Eosinophils # 0.2 K/mm3 (0.0-0.4); Eosinophils % 4.3 % (0.1-12.0); Hematocrit 26.3 % (42.0-52.0); Lymphocytes # 0.7 K/mm3 (0.7-4.5); Lymphocytes % 18.7 % (10-50); Mean Corpuscular Hemoglobin 31.6 pg (27.0-31.2); Mean Corpuscular Volume 98.9 fl (80-94); Mean Platelet Volume 10.6 fl (7.4-10.4); Monocytes # 0.2 K/mm3 (0.1-1.0); Monocytes % 6.6 % (1.7-9.3); Neutrophils # 2.4 K/mm3 (1.8-7.8); Neutrophils % 69.7 % (37.0-80.0); Platelet Count 101 K/mm3 (142-424); Red Blood Count 2.66 M/mm3 (4.60-6.20); Red Cell Distribution Width 18.9 % (11.5-17.5); White Blood Count 3.5 K/mm3 (4.8-10.8)
[2022-05-23 07:37] LABS: Alanine Aminotransferase 16 U/L (12-78); Albumin Level 2.8 g/dl (3.5-5.0); Albumin/Globulin Ratio 0.9 (1.1-1.8); Alkaline Phosphatase 105 U/L (38-126); Anion Gap 12.3 mEq/L (5-15); Aspartate Amino Transferase 39 U/L (17-59); Bilirubin,Total 1.6 mg/dl (0.2-1.3); Blood Urea Nitrogen 23 mg/dl (9-20); Calcium 8.1 mg/dl (8.4-10.2); Carbon Dioxide 23 mmol/L (22.0-30.0); Chloride 103 mmol/L (98-107); Creatinine Clearance Estimated 73 mL/min (50-200); Estimated Glomerular Filt Rate 64 ml/min (>60); GFR (African American) 77 ML/MIN (>60); Glucose 101 mg/dl (74-100); Potassium 4.3 mmoL/L (3.5-5.1); Sodium 134 mmol/L (136-145); Total Protein,Serum 5.8 g/dl (6.3-8.2)
[2022-05-23 07:42] LABS: Hemoglobin 8.4 g/dL (14.1-18.0)
[2022-05-23 08:00] VITALS: BP 135/76; PULSE 70; PULSE 71; RESP 22; TEMP 36.7; O2SAT 95
== END 2022-05-23 09:20 | DRG 243 ==
PROVIDERS: Internal Medicine; Nurse Practitioner Critical Care Medicine; Nurse Practitioner Family; Admitting Provider Emergency Medicine; Visit Provider Internal Medicine Adolescent Medicine
PROC: 0JH606Z Insertion of Pacemaker, Dual Chamber into Chest Subcutaneous Tissue and Fascia, Open Approach (ICD-10-PCS; principal; 2022-05-19 12:00)
DX: I21.4 Non-ST elevation (NSTEMI) myocardial infarction (principal); D68.32 Hemorrhagic disorder due to extrinsic circulating anticoagulants; I42.9 Cardiomyopathy, unspecified; I48.20 Chronic atrial fibrillation, unspecified; I50.20 Unspecified systolic (congestive) heart failure; I44.2 Atrioventricular block, complete; K62.5 Hemorrhage of anus and rectum; I25.10 Atherosclerotic heart disease of native coronary artery without angina pectoris; E78.5 Hyperlipidemia, unspecified; I27.20 Pulmonary hypertension, unspecified; I00 Rheumatic fever without heart involvement; I11.0 Hypertensive heart disease with heart failure; E11.9 Type 2 diabetes mellitus without complications; Z79.01 Long term (current) use of anticoagulants; K74.60 Unspecified cirrhosis of liver; I08.3 Combined rheumatic disorders of mitral, aortic and tricuspid valves; R79.1 Abnormal coagulation profile; K64.9 Unspecified hemorrhoids; T45.515A Adverse effect of anticoagulants, initial encounter; D50.0 Iron deficiency anemia secondary to blood loss (chronic); D69.6 Thrombocytopenia, unspecified
CPT/HCPCS: 33208; 36415; 71045; 71046; 73600; 80053; 80061; 81001; 82140; 83013; 83036; 83605; 83735; 83880; 84484; 85007; 85014; 85018; 85025; 85610; 86850; 93005; 93306; 93923; 97110; 97116; 97163; 97165; 97530; 97535; C1769; C1898; C1900; C2621; C9803; J2704; P9016; Q9967; U0003; U0005

== ENCOUNTER 2023-03-28 22:47 | Emergency (ER) | payer OTHER, SELFPAY ==
[2023-03-28 22:47] VITALS: BP 115/51; PULSE 70; RESP 18; O2SAT 98; BMI 31.0
[2023-03-28 23:38] LABS: Basophils % 0.4 % (0.1-2.0); Eosinophils % 0.9 % (0.1-12.0); Lymphocytes # 0.8 K/mm3 (0.7-4.5); Lymphocytes % 19.8 % (10-50); Mean Corpuscular HGB Conc 29.1 g/dL (31.8-35.4); Mean Corpuscular Hemoglobin 22.4 pg (27.0-31.2); Mean Corpuscular Volume 76.8 fl (80-94); Mean Platelet Volume 9.7 fl (7.4-10.4); Monocytes # 0.3 K/mm3 (0.1-1.0); Monocytes % 7.1 % (1.7-9.3); Neutrophils # 2.9 K/mm3 (1.8-7.8); Neutrophils % 71.8 % (37.0-80.0); Platelet Count 200 K/mm3 (142-424); Red Cell Distribution Width 19.2 % (11.5-17.5); White Blood Count 4.1 K/mm3 (4.8-10.8)
[2023-03-28 23:42] LABS: Alanine Aminotransferase 24 U/L (12-78); Albumin Level 2.8 g/dl (3.5-5.0); Albumin/Globulin Ratio 0.8 (1.1-1.8); Alkaline Phosphatase 100 U/L (38-126); Aspartate Amino Transferase 35 U/L (17-59); Bilirubin,Total 0.5 mg/dl (0.2-1.3); Blood Urea Nitrogen 47 mg/dl (9-20); Calcium 8.1 mg/dl (8.4-10.2); Carbon Dioxide 21 mmol/L (22.0-30.0); Chloride 104 mmol/L (98-107); Creatinine Clearance Estimated 35 mL/min (50-200); Estimated Glomerular Filt Rate 30 ml/min (>60); GFR (African American) 37 ML/MIN (>60); Globulin 3.6 g/dL (1.3-3.2); Glucose 111 mg/dl (74-100); Lactate Dehydrogenase 464 U/L (313-618); Sodium 133 mmol/L (136-145); Total Protein,Serum 6.4 g/dl (6.3-8.2)
[2023-03-28 23:43] LABS: Hematocrit 16.1 % (42.0-52.0); Hemoglobin 4.7 g/dL (14.1-18.0)
[2023-03-28 23:45] LABS: Prothrombin Time 14.8 seconds (10.1-12.5)
--- NOTE | 2023-03-28 23:55 | PC.NURSE ---
hospice nurse at bedside discussing POC with
[2023-03-29] VITALS (50 sets, daily range): BP systolic 91–140; BP diastolic 33–74; PULSE 68–92; RESP 16–24; TEMP 36.4–36.9; O2SAT 93–100
--- NOTE | 2023-03-29 00:32 | HMH.EDGENADL ---
Discharge Plan Disposition Patient Disposition: Home, Self-Care Chief Complaint: PAIN Prescriptions Prescriptions: No Action furosemide 40 MG tablet 40 mg PO DAILY atorvastatin 10 MG tablet 10 mg PO HS meclizine 12.5 MG tablet 12.5 mg PO HS potassium chloride 10 mEq capsule, extended release 10 meq PO BID Patient Comments: TAKE 1 CAPSULE TWICE DAILY WITH FOOD. cholecalciferol (vitamin D3) [Vitamin D3] 50 mcg (2,000 unit) capsule 50 mcg PO DAILY Patient Comments: Take 1 capsule(s) every day spironolactone 25 MG tablet 25 mg PO DAILY tamsulosin 0.4 MG capsule 0.4 mg PO HS irbesartan 150 MG tablet 150 mg PO DAILY acetaminophen 325 mg Tablet 650 mg PO Q4HP PRN (Reason: Fever Or Mild Pain) Qty: 0 0RF hydrocortisone acetate 30 mg Suppository 30 mg LA BID Qty: 0 0RF ipratropium-albuterol 0.5 mg-3 mg(2.5 mg base)/3 mL Solution For Nebulization 3 ml inhalation Q4HP PRN (Reason: Shortness Of Breath) Qty: 0 0RF pantoprazole 40 mg Tablet,Delayed Release (Dr/Ec) 40 mg PO DAILY Qty: 0 0RF Referrals Follow up/Referrals: Provider,Referral, MD [Primary Care Provider] - See instructions Activity Restrictions/Add. Instructions Additional Instructions/Restrictions: You have acute on chronic anemia as well as acute kidney injury please follow-up with your hospice nurses and your outpatient physicians to continue to manage you palliative care. Clinical Impressions Clinical Impression: Ascites, Anemia, Cirrhosis, ASHTYN (acute kidney injury) Discharge ED Provider: Brian Vargas General Adult HPI <Jaswant King MD - Last Filed: 03/29/23 00:44> General Chief complaint: PAIN Stated complaint: ascites Time Seen by Provider: 03/28/23 23:07 Mode of Arrival: EMS Source of Information: Patient and EMS Limitations: No Limitations Description of Symptoms (Recalled from ER Triage Doc. by RN): Hospice nurse called to give report on patient, reports patient is uncomfortable and in pain due to ascities. She reports he was telling prison staff Just get it off and rubbing his belly. Patient reports he has previous paracentesis. Patient presents with dressings to bilateral feet. Patient has chronically low HGB and is under care of hospice. History of Present Illness HPI narrative: Patient presents for evaluation of abdominal distension consistent with known history of ascites. Patient is under the care of hospice due to several comorbidities and was transferred for paracentesis for palliative purposes with plan for return to hospice care. He had been requesting paracentesis while at prior facility, with no other acute complaints. Last para was approximately 2 months ago. No fevers, chills, nausea, vomiting, chest pain, or discomfort elsewhere. Arrives to the ED alert, oriented, and HDS. Related Data Home Medications Medication Instructions Recorded Confirmed atorvastatin 10 mg tablet 10 mg PO HS Cholesterol 01/22/22 07/09/22 furosemide 40 mg tablet 40 mg PO DAILY Fluid 01/22/22 07/09/22 meclizine 12.5 mg tablet 12.5 mg PO HS dizziness 01/22/22 07/09/22 cholecalciferol (vitamin D3) 50 50 mcg PO DAILY Supplement 05/17/22 07/09/22 mcg (2,000 unit) capsule (Vitamin D3) irbesartan 150 mg tablet 150 mg PO DAILY Hypertension 05/17/22 07/09/22 potassium chloride 10 mEq 10 meq PO BID Supplement 05/17/22 07/09/22 capsule,extended release spironolactone 25 mg tablet 25 mg PO DAILY Fluid 05/17/22 07/09/22 tamsulosin 0.4 mg capsule 0.4 mg PO HS PROSTATE 05/17/22 07/09/22 Previous Rx's Medication Instructions Recorded acetaminophen 325 mg tablet 650 mg PO Q4HP PRN Fever Or Mild 05/21/22 Pain #0 tabs hydrocortisone acetate 30 mg 30 mg LA BID #0 ea 05/21/22 rectal suppository ipratropium 0.5 mg-albuterol 3 mg 3 ml inhalation Q4HP PRN Shortness 05/21/22 (2.5 mg base)/3 mL nebulization Of Breath #0 mL soln pantoprazole 40 mg tablet,delayed 40
--- NOTE | 2023-03-29 02:33 | PC.NURSE ---
Paracentesis stopped at this time. 8 L removed patient tolerated well.
--- NOTE | 2023-03-29 05:23 | PC.NURSE ---
patient sleeping at this time.
--- NOTE | 2023-03-29 06:43 | PC.NURSE ---
assisted patient with urinal.
--- NOTE | 2023-03-29 07:25 | PC.NURSE ---
Rounded on pt. Pt provided with ice water. No other needs voiced at this time. Call light within reach.
--- NOTE | 2023-03-29 08:20 | PC.NURSE ---
rounded on pt, pt resting in bed, states no needs at this time.
--- NOTE | 2023-03-29 08:57 | PC.NURSE ---
waiting button sewer hand back from octavio huffman who is button sewer hand staff for this pt for this pt. ER MD Vargas wanting to speak with button sewer hand for this pt.
--- NOTE | 2023-03-29 09:12 | PC.NURSE ---
ER MD Vargas speaking with RYAN De Anda who is sediment remediation consultant staff for hospice at this time
--- NOTE | 2023-03-29 09:14 | PC.NURSE ---
Dr. Vargas reports pt ready for d/c contacted ems
--- NOTE | 2023-03-29 10:12 | PC.NURSE ---
ems attempted to get concepcion to take pt to [facility], they advised they dont take transfers.
--- NOTE | 2023-03-29 10:33 | PC.NURSE ---
placed call to [facility] for transfer to [facility], they declined.
--- NOTE | 2023-03-29 11:05 | PC.NURSE ---
Pt resting in bed. Continues to wait for ambulance transportation availability. [facility]. EMS declined to transport pt at this time.
--- NOTE | 2023-03-29 12:50 | PC.NURSE ---
Rounded on pt. Pt continues resting in bed. No needs voiced.
--- NOTE | 2023-03-29 15:03 | PC.NURSE ---
Pt urinal emptied and ice chips given. No other needs voiced. Pt continues to wait for transportation.
--- NOTE | 2023-03-29 15:10 | PC.NURSE ---
due to numerous emergent transfers keeping [facility] ems busy i called [facility] again to see if they could transfer pt. they advised they didnt have staff for another truck at this time
--- NOTE | 2023-03-29 15:15 | PC.NURSE ---
Pt readjusted in bed for comfort and provided with a sandwich, chips, cookie, and a pop. Call light remains within reach.
--- NOTE | 2023-03-29 16:26 | PC.NURSE ---
rounded on pt, he ate 1/2 his sandwich, cookies, and drank his soda
--- NOTE | 2023-03-29 18:36 | PC.NURSE ---
Left [facility] know that pt is headed back tot their facility. The nurse will not answer. The registration desk has transferred me 4x wo success of pt's nurse to answer the phone for reports. [facility] transport taken pt. Pt's hospice nurse, Neetu was notified of pt's d/c back to [facility]
[2023-03-29 19:30] LABS: Appearance,Body Fld. Normal; Volume,Body Fld. 8000 mL
[2023-03-29 19:40] LABS: TNC,Body Fluid 100 cells/uL (< 1000)
[2023-03-29 19:44] LABS: RBC,Body Fluid < 10 cells/uL (< 10 X 10^3); Source, Body Fld. Peritoneal Fluid
[2023-03-29 20:54] LABS: Mononuclear WBCs,Body Fluid 89 %; Polynuclear WBC,Body Fluid 11 %
[2023-03-31 13:17] LABS: Albumin, Body Fluid 1.1 g/dL (Not Estab.); Glucose, Body Fluid 121 mg/dL (.); LD, Body Fluid 92 IU/L (.); Protein, Body Fluid 2.4 g/dL (.)
--- NOTE | 2023-04-07 12:33 | HMH.EDGENADL ---
Discharge Plan Disposition Patient Disposition: Home, Self-Care Prescriptions Prescriptions: No Action furosemide 40 MG tablet 40 mg PO DAILY atorvastatin 10 MG tablet 10 mg PO HS meclizine 12.5 MG tablet 12.5 mg PO HS potassium chloride 10 mEq capsule, extended release 10 meq PO BID Patient Comments: TAKE 1 CAPSULE TWICE DAILY WITH FOOD. cholecalciferol (vitamin D3) [Vitamin D3] 50 mcg (2,000 unit) capsule 50 mcg PO DAILY Patient Comments: Take 1 capsule(s) every day spironolactone 25 MG tablet 25 mg PO DAILY tamsulosin 0.4 MG capsule 0.4 mg PO HS irbesartan 150 MG tablet 150 mg PO DAILY acetaminophen 325 mg Tablet 650 mg PO Q4HP PRN (Reason: Fever Or Mild Pain) Qty: 0 0RF hydrocortisone acetate 30 mg Suppository 30 mg ND BID Qty: 0 0RF ipratropium-albuterol 0.5 mg-3 mg(2.5 mg base)/3 mL Solution For Nebulization 3 ml inhalation Q4HP PRN (Reason: Shortness Of Breath) Qty: 0 0RF pantoprazole 40 mg Tablet,Delayed Release (Dr/Ec) 40 mg PO DAILY Qty: 0 0RF Referrals Follow up/Referrals: Provider,Referral, MD [Primary Care Provider] - See instructions Activity Restrictions/Add. Instructions Additional Instructions/Restrictions: You have acute on chronic anemia as well as acute kidney injury please follow-up with your hospice nurses and your outpatient physicians to continue to manage you palliative care. Clinical Impressions Clinical Impression: Ascites, Anemia, Cirrhosis, ASHTYN (acute kidney injury) Instructions Patient Instructions: Anemia Discharge ED Provider: Brian Vargas General Adult HPI General Chief complaint: PAIN Stated complaint: ascites Time Seen by Provider: 03/28/23 23:07 Mode of Arrival: EMS Source of Information: Patient and EMS Limitations: No Limitations Description of Symptoms (Recalled from ER Triage Doc. by RN): Hospice nurse called to give report on patient, reports patient is uncomfortable and in pain due to ascities. She reports he was telling custodial staff Just get it off and rubbing his belly. Patient reports he has previous paracentesis. Patient presents with dressings to bilateral feet. Patient has chronically low HGB and is under care of hospice. Related Data Home Medications Medication Instructions Recorded Confirmed atorvastatin 10 mg tablet 10 mg PO HS Cholesterol 01/22/22 07/09/22 furosemide 40 mg tablet 40 mg PO DAILY Fluid 01/22/22 07/09/22 meclizine 12.5 mg tablet 12.5 mg PO HS dizziness 01/22/22 07/09/22 cholecalciferol (vitamin D3) 50 50 mcg PO DAILY Supplement 05/17/22 07/09/22 mcg (2,000 unit) capsule (Vitamin D3) irbesartan 150 mg tablet 150 mg PO DAILY Hypertension 05/17/22 07/09/22 potassium chloride 10 mEq 10 meq PO BID Supplement 05/17/22 07/09/22 capsule,extended release spironolactone 25 mg tablet 25 mg PO DAILY Fluid 05/17/22 07/09/22 tamsulosin 0.4 mg capsule 0.4 mg PO HS PROSTATE 05/17/22 07/09/22 Previous Rx's Medication Instructions Recorded acetaminophen 325 mg tablet 650 mg PO Q4HP PRN Fever Or Mild 05/21/22 Pain #0 tabs hydrocortisone acetate 30 mg 30 mg ND BID #0 ea 05/21/22 rectal suppository ipratropium 0.5 mg-albuterol 3 mg 3 ml inhalation Q4HP PRN Shortness 05/21/22 (2.5 mg base)/3 mL nebulization Of Breath #0 mL soln pantoprazole 40 mg tablet,delayed 40 mg PO DAILY #0 tabs 05/21/22 release Allergies Allergy/AdvReac Type Severity Reaction Status Date / Time No Known Allergies Allergy Verified 07/09/22 09:55 [facility] Disclaimer: The information contained in this section may have been updated after the patient was seen, as this information can be updated by other users. Medical History Abnormal electrocardiogram [ECG] [EKG] Acute on chronic diastolic (congestive) heart failure Acute rheumatoid arthritis Atrial fibrillation Cardiomyopathy Congestive heart failure
--- NOTE | 2023-04-07 13:32 | PC.NURSE ---
Spoke with Dr. De La Garza who is on shift today about the pts positive fluid result. MD stated he believed the result was due to contamination due to the negative gram stain and other fluid diff. wanted confirmation from pharmacy. spoke with Willy in pharmacy at this time who also agreed that the result was due to contamination. no further action needed at this time
== END 2023-03-29 18:30 | disposition home or self-care (01) ==
PROVIDERS: Emergency Medicine; Emergency Provider Student in an Organized Health Care Education/Training Program
DX: K74.60 Unspecified cirrhosis of liver (principal); R18.8 Other ascites; D64.9 Anemia, unspecified; N17.9 Acute kidney failure, unspecified; I11.0 Hypertensive heart disease with heart failure; I50.33 Acute on chronic diastolic (congestive) heart failure; M06.9 Rheumatoid arthritis, unspecified; I48.91 Unspecified atrial fibrillation; I42.9 Cardiomyopathy, unspecified; I25.10 Atherosclerotic heart disease of native coronary artery without angina pectoris; E11.9 Type 2 diabetes mellitus without complications; E78.5 Hyperlipidemia, unspecified; I27.20 Pulmonary hypertension, unspecified; I87.2 Venous insufficiency (chronic) (peripheral); Z87.891 Personal history of nicotine dependence
CPT/HCPCS: 49083; 80053; 82042; 82945; 83615; 84155; 85025; 85610; 86850; 87070; 87077; 87186; 87205; 89051; 96374; 96375; 99285; C1725; P9016